=== PATIENT | male | born 1945 | race Caucasian/White ===

== ENCOUNTER → 2018-07-01 07:51 | Outpatient (CLI) | payer MEDICARE, OTHER, SELFPAY ==
[2018-07-01 09:21] LABS: Alanine Aminotransferase 31 IU/L (21-72); Albumin 4.3 g/dL (3.5-5.0); Albumin Globulin Ratio 1.5 (1.0-2.8); Alkaline Phosphatase 59 U/L (38-126); Aspartate Aminotransferase 27 IU/L (17-59); BUN Creatinine Ratio 16.3 (6-22); Bilirubin Total 0.8 mg/dL (0.2-1.3); Blood Urea Nitrogen 13 mg/dL (9-20); Calcium 9.2 mg/dL (8.4-10.2); Carbon Dioxide 31 mmol/L (22-32); Chloride 104 mmol/L (98-107); Estimated Glomerular Filt Rate > 60.0 mL/min (>60); Globulin 2.8 g/dL (1.7-4.1); Glucose 93 mg/dL (80-110); HEMOLYSIS < 15 (0-50); Potassium 4.2 mmol/L (3.4-5.1); Sodium 144 mmol/L (137-145); Total Protein 7.1 g/dL (6.3-8.2)
[2018-07-07 09:20] LABS: Lipoprofile NMR SEE SEPERATE REPORT
== END ==
PROVIDERS: PCP Family Medicine; Visit Provider Specialist
DX: E78.2 Mixed hyperlipidemia (principal)
CPT/HCPCS: 36415; 80053; 83704

== ENCOUNTER → 2018-09-27 08:41 | Outpatient (CLI) | payer MEDICARE, OTHER, SELFPAY ==
--- NOTE | 2018-09-27 | DI.MRI.S_ITS ---
PROCEDURE: MR LUMBAR SPINE WO CON INDICATIONS: LEFT ANKLE WEAKNESS, SI RADICULOPATHY TECHNIQUE: Noncontrast sagittal T1 spin echo and T2 fast echo, coronal T2, sagittal STIR, axial T1 and T2 fast spin echo through the lumbar spine. COMPARISON: None. FINDINGS: Image quality: Excellent. Alignment and Curvature: No plain films are available for comparison, for numbering purposes. Thus, for the purposes of this examination, 5 lumbar type vertebral bodies will be presumed, as denoted on the montage panel. This should be confirmed and correlated with plain films, prior to any lumbar spinal intervention. There is moderate leftward curvature of the upper lumbar spine. There is mild, grade 1 retrolisthesis of T12 on L1, L1-L2, L2 on L3, and L3 on L4. Bone Marrow: Marrow is of normal overall signal. No acute vertebral body compression fractures. There is mild reactive signal within the endplates adjacent to the L1-L2, L2-L3, L3-L4, and L4-L5 intervertebral discs. Spinal Cord: Conus medullaris terminates at the mid L1 level. Visualized cord demonstrates normal signal and size. Paraspinous Soft Tissues: No paravertebral masses. Partially exophytic 65 mm diameter cyst protrudes superiorly from the superior pole left kidney. L1-L2: Mild disc height loss and desiccation. Mild diffuse disc bulge. Mild bilateral facet and ligamentum flavum hypertrophy. Mild canal stenosis. Mild bilateral foraminal stenosis. No change. L2-L3: Moderate disc height loss and desiccation. Mild diffuse disc bulge. Mild bilateral facet and ligamentum flavum hypertrophy. Moderate canal stenosis. Mild bilateral foraminal stenosis. No change. L3-L4: Moderate disc height loss and desiccation. Mild diffuse disc bulge with superimposed broad-based left lateral protrusion. Mild bilateral facet and ligamentum flavum hypertrophy. Mild canal stenosis. Moderate subarticular left and mild right foraminal stenosis. L4-L5: Moderate disc height loss and desiccation. Mild diffuse disc bulge with superimposed broad-based left far lateral protrusion. Mild bilateral facet hypertrophy. Mild canal stenosis. Moderate subarticular left and mild right foraminal stenosis. L5-S1: Moderate disc height loss and desiccation. Mild diffuse disc bulge. Mild bilateral facet hypertrophy. No significant canal, nor foraminal stenosis. IMPRESSION: 1. 5 lumbar type vertebral bodies were presumed for the current report. Plain films of the lumbar spine are recommended for confirmation, prior to any lumbar spinal intervention. 2. Leftward curvature of the upper lumbar spine. 3. Multilevel degenerative disc and facet disease, as well as ligamentum flavum hypertrophy. 4. Mild multilevel canal stenoses. 5. Multilevel foraminal stenoses, worst on the left at L3-L4 and L4-L5, where there are moderate foraminal stenoses present. Dictated by: Amanuel Bean M.D. on 09/29/2018 at 9:05 Approved by: Amanuel Bean M.D. on 09/29/2018 at 9:09
== END ==
PROVIDERS: PCP Family Medicine; Visit Provider Family Medicine
DX: M51.16 Intervertebral disc disorders with radiculopathy, lumbar region (principal); M51.17 Intervertebral disc disorders with radiculopathy, lumbosacral region; M48.061 Spinal stenosis, lumbar region without neurogenic claudication; M48.07 Spinal stenosis, lumbosacral region
CPT/HCPCS: 72148

== ENCOUNTER → 2018-11-19 09:20 | Outpatient (CLI) | payer MEDICARE, OTHER, SELFPAY ==
[2018-11-19 09:50] LABS: Add Manual Diff / Slide Review NO; Basophils Absolute Auto 100 /uL (0-100); Basophils Percent Auto 1.6 % (0-2); Eosinophils Absolute Auto 200 /uL (0-450); Eosinophils Percent Auto 4.6 % (2-4); Hematocrit 45.4 % (41-53); Hemoglobin 14.5 g/dL (13.5-17.5); Lymphocytes Absolute Auto 1500 /uL (1100-4500); Lymphocytes Percent Auto 28.9 % (25-40); Mean Corpuscular HGB Conc 31.9 % (30-36); Mean Corpuscular Hemoglobin 24.9 PG (26-34); Mean Corpuscular Volume 78.2 fL (80-100); Monocytes Absolute Auto 500 /uL (0-900); Monocytes Percent Auto 10.1 % (3-14); Neutrophils Absolute Auto 2900 /uL (1500-7000); Neutrophils Percent Auto 54.8 % (50-75); Platelet Count 243 X10^3/uL (150-400); Red Blood Cell Count 5.81 X10^6/uL (4.5-5.9); Red Cell Distribution Width 16.2 % (11.6-14.8); White Blood Cell Count 5.3 X10^3/uL (4.5-11.0)
[2018-11-19 11:15] LABS: Vitamin B12 387 pg/mL (239-931)
== END ==
PROVIDERS: PCP Family Medicine; Visit Provider Family Medicine
DX: G62.9 Polyneuropathy, unspecified (principal)
CPT/HCPCS: 36415; 82607; 85025

== ENCOUNTER → 2018-12-26 09:09 | Outpatient (CLI) | payer MEDICARE, OTHER, SELFPAY ==
[2018-12-26 10:21] LABS: Alanine Aminotransferase 37 IU/L (21-72); Albumin 4.4 g/dL (3.5-5.0); Albumin Globulin Ratio 1.5 (1.0-2.8); Alkaline Phosphatase 61 U/L (38-126); Aspartate Aminotransferase 29 IU/L (17-59); BUN Creatinine Ratio 17.5 (6-22); Bilirubin Total 0.9 mg/dL (0.2-1.3); Blood Urea Nitrogen 14 mg/dL (9-20); Calcium 9.1 mg/dL (8.4-10.2); Carbon Dioxide 27 mmol/L (22-32); Chloride 102 mmol/L (98-107); Estimated Glomerular Filt Rate > 60.0 mL/min (>60); Globulin 2.9 g/dL (1.7-4.1); Glucose 91 mg/dL (80-110); HEMOLYSIS < 15 (0-50); Magnesium 2.2 mg/dL (1.6-2.3); Potassium 4.1 mmol/L (3.4-5.1); Sodium 140 mmol/L (137-145); Total Protein 7.3 g/dL (6.3-8.2)
[2018-12-29 11:45] LABS: Lipoprofile NMR SEE SEPERATE REPORT
== END ==
PROVIDERS: Family Provider Family Medicine; PCP Family Medicine; Visit Provider Specialist
DX: E78.2 Mixed hyperlipidemia (principal); I48.0 Paroxysmal atrial fibrillation
CPT/HCPCS: 36415; 80053; 83704; 83735

== ENCOUNTER 2019-10-11 11:16 | Emergency (ER) | payer MEDICARE, OTHER, SELFPAY ==
[2019-10-11] VITALS (7 sets, daily range): BP systolic 114–158; BP diastolic 58–94; PULSE 63–120; RESP 12–22; TEMP 36.6; O2SAT 97–100; BMI 20.8
--- NOTE | 2019-10-11 11:28 | DI.RAD.S_ITS ---
PROCEDURE: XR CHEST 1V INDICATIONS: soa TECHNIQUE: One view of the chest was acquired. COMPARISON: None. FINDINGS: Surgical changes and devices: None. Lungs and pleura: Mild hyperinflation suggesting COPD. Lungs are clear. No pleural effusions or pneumothorax. Mediastinum: Mediastinal contours appear normal. Heart size is normal. Bones and chest wall: No suspicious bony lesions. Overlying soft tissues appear unremarkable. IMPRESSION: No acute cardiopulmonary disease. Suspect COPD. Dictated by: Luís Pritchard M.D. on 10/11/2019 at 12:07 Approved by: Luís Pritchard M.D. on 10/11/2019 at 12:09
[2019-10-11 11:38] LABS: Add Manual Diff / Slide Review NO; Basophils Absolute Auto 100 /uL (0-100); Basophils Percent Auto 0.9 % (0-2); Eosinophils Absolute Auto 100 /uL (0-450); Eosinophils Percent Auto 0.6 % (2-4); Hematocrit 50.7 % (41-53); Hemoglobin 16.6 g/dL (13.5-17.5); Lymphocytes Absolute Auto 2000 /uL (1100-4500); Lymphocytes Percent Auto 24.4 % (25-40); Mean Corpuscular HGB Conc 32.7 % (30-36); Mean Corpuscular Hemoglobin 26.4 PG (26-34); Mean Corpuscular Volume 80.7 fL (80-100); Monocytes Absolute Auto 700 /uL (0-900); Monocytes Percent Auto 8.3 % (3-14); Neutrophils Absolute Auto 5400 /uL (1500-7000); Neutrophils Percent Auto 65.8 % (50-75); Platelet Count 267 X10^3/uL (150-400); Red Blood Cell Count 6.29 X10^6/uL (4.5-5.9); Red Cell Distribution Width 15.9 % (11.6-14.8); White Blood Cell Count 8.2 X10^3/uL (4.5-11.0)
[2019-10-11 11:43] LABS: Alanine Aminotransferase 22 IU/L (<50); Albumin 4.6 g/dL (3.5-5.0); Albumin Globulin Ratio 1.6 (1.0-2.8); Alkaline Phosphatase 73 U/L (38-126); Aspartate Aminotransferase 25 IU/L (17-59); BUN Creatinine Ratio 16.7 (6-22); Bilirubin Total 0.8 mg/dL (0.2-1.3); Blood Urea Nitrogen 15 mg/dL (9-20); Calcium 9.2 mg/dL (8.4-10.2); Carbon Dioxide 28 mmol/L (22-32); Chloride 101 mmol/L (98-107); Estimated Glomerular Filt Rate > 60.0 mL/min (>60); Globulin 2.9 g/dL (1.7-4.1); Glucose 108 mg/dL (80-110); HEMOLYSIS < 15 (0-50); Sodium 138 mmol/L (137-145); Total Protein 7.5 g/dL (6.3-8.2)
--- NOTE | 2019-10-11 11:44 | PC.NURSE ---
Pt reports h/o paroxsymal afib for numerous years. controlled with flecinide and eliquis. Multiple cardioversions. last one in 2017. reports increased SOB and palpitations since 10/09 at 0700. took an additional flecinide w/o relief and advised to come to ED for cardioversion. Rate controlled below 100 at this time. Pt reports orthostatic BPs this morning and when checked in ED pt went from 130's systolic to 114 systolic with increase of rate to 120's. appears well at this time. denies CP, remians on monitoring. IV placed and labs drawn and sent. CXR and EKG completed. awaiting MD assessment.
[2019-10-11 11:55] LABS: Troponin I < 0.012 ng/mL (0.01-0.034)
--- NOTE | 2019-10-11 11:58 | ED.SOB ---
HPI - SOB/Dyspnea General Chief Complaint: Shortness of Breath/Dyspnea Stated Complaint: SHORT OF BREATH RAPID HEARTBEAT FIBULATIONS Time Seen by Provider: 10/11/19 11:58 Source: patient Mode of arrival: Ambulatory Limitations: no limitations History of Present Illness HPI Narrative: This is a 73-year-old male who comes to the emergency department with complaint of atrial fibrillation and shortness of breath. Patient states that he has a history of paroxysmal atrial fibrillation he has been on flecainide and Eliquis for several years. In 2017 with his last event that required cardioversion. He has had 1-3 episodes of cardioversion the last in 2010 followed by being started on flecainide and spontaneously converting 3 prior times. Patient states he has felt lightheaded he checked his blood pressure at home and got 122 systolic laying flat and 84 when he stood. Patient states that he has not had any syncope. He denies any chest pressure pain but does feel little short of breath with exertion. He states he has chronic pedal edema but that it does not seem worse. He has not had any orthopnea. He has not had any cough or difficulty with breathing or congestion. Patient states that he did increase his flecainide from 75 mg twice daily yesterday and took 100 mg this morning he noted that his heart rate was slower but had not cardioverted to a normal rhythm. He did speak with the passenger tire inspector on-call his normal passenger tire inspector is Dr. Art and they recommended coming to the emergency department. He denies any prior surgeries besides a platelet infusion for orthopedic issues in [facility]. No medication allergies. He had a negative stress test/echo 2 years ago. Review of Systems Review of Systems ROS Unobtainable: All systems reviewed & are unremarkable except as noted in HPI and below Exam Narrative Exam Narrative: GENERAL: Alert and oriented x three, thin, well-appearing male in mild distress. HEENT: Head normocephalic, atraumatic, EOMI, pupils reactive, face symmetric, moist mucous membranes NECK: Supple, full range of motion CARDIOVASCULAR: Irregularly irregular rate and rhythm without murmurs, rubs or gallops. RESPIRATORY: Breath sounds equal bilaterally, no wheezes rales or rhonchi. No tachypnea or accessory muscle use. ABDOMEN: Soft, nontender. Normoactive bowel sounds all 4 quadrants. No guarding or rebound, rigidity, no mass : No CVA tenderness EXTREMITIES: Normal range of motion, trace bilateral pedal edema. Neurovascularly intact NEUROLOGICAL: Cranial nerves II through XII grossly intact. Moving all extremities SKIN: Warm, dry, no petechiae, no rashes or lesions. Initial Vital Signs Initial Vital Signs: Vital Signs Temperature 97.9 F 10/11/19 11:20 Pulse Rate 87 10/11/19 11:20 Respiratory Rate 22 10/11/19 11:20 Blood Pressure 136/84 10/11/19 11:20 Pulse Oximetry 100 10/11/19 11:20 Procedures Cardioversion Consent Signed: Yes Indication: atrial fibrillation Cardiac rhythm prior to cardioversion: atrial fibrillation Stability: Stable Number of attempts (shocks): 1 Joules used: 150 Cardiac rhythm post-cardioversion: sinus rhythm Procedural Sedation Patient Age: Patient is 5yrs or older Consent signed: Yes Indication: cardioversion ASA Class: II Mallampati Airway Classification: Class II Time of Last PO Intake: 09:15 Preparation: appliance mechanic applied, pulse oximeter, capnometry used, supplemental O2 applied, suction/airway equipment at bedside and IV secured IV Etomidate dose (mg): 8 ED Sedation Level: Moderate (Concious) Patient Tolerated Procedure: Well Complications: none Course Orders Ordered: ED Orders 10/11/19 11:24 EKG-12 Lead Stat 10/11/19 11:25 Complete Blood Count AUTO DIFF Stat Comprehensive Metabolic Panel Stat Troponin I Stat 10/11/19 11:28 XR chest 1V Stat 10/11/19 11:34 B Type Natriuretic Peptide Stat Creatine Kinase Stat Lipase Stat Magnesium Stat Discontinued Medications Etomidate (Amidate) 8 mg IV NOW ONE Stop: 10/11/19 13:36 Last Admin: 10/11/19 13:54 Dose: 8 mg Documented by: REGINE Sodium Chloride (Normal Saline 0.9%) 1,000 mls @ 1,000 mls/hr IV BOLUS ONE Stop: 10/11/19 13:16 Last Infusion: 10/11/19 13:20 Dose: 0 mls/hr Documented by: Admin: 10/11/19 12:23 Dose: 1,000 mls/hr Documented by: REGINE Vital Signs Vital signs: Vital Signs - 8 hr 10/11/19 11:20 10/11/19 12:34 10/11/19 13:54 Temperature 97.9 F Pulse Rate 87 74 87 Pulse Rate [Orthostatic Lying] 87 Pulse Rate [Orthostatic Standing] 120 H Respiratory Rate 22 16 15 Blood Pressure 136/84 Blood Pressure [Left Arm] 126/79 158/58 H Blood Pressure [Orthostatic Lying] 136/84 Blood Pressure [Orthostatic Standing] 114/94 H Pulse Oximetry 100 100 97 10/11/19 13:56 10/11/19 13:59 10/11/19 14:03 Temperature Pulse Rate 64 63 78 Pulse Rate [Orthostatic Lying] Pulse Rate [Orthostatic Standing] Respiratory Rate 15 17 12 Blood Pressure Blood Pressure [Left Arm] 121/84 137/80 Blood Pressure [Orthostatic Lying] Blood Pressure [Orthostatic Standing] Pulse Oximetry 97 97 10/11/19 14:04 Temperature Pulse Rate 72 Pulse Rate [Orthostatic Lying] Pulse Rate [Orthostatic Standing] Respiratory Rate 15 Blood Pressure Blood Pressure [Left Arm] 132/77 Blood Pressure [Orthostatic Lying] Blood Pressure [Orthostatic Standing] Pulse Oximetry 97 MDM - SOB/Dyspnea Lab Data Attestation: I reviewed the patient's lab results. Result diagrams: 10/11/19 11:25 10/11/19 11:25 Labs: Lab Results 10/11/19 10/11/19 10/11/19 Range/Units 11:25 11:25 11:34 WBC 8.2 (4.5-11.0) X10^3/uL RBC 6.29 H (4.5-5.9) X10^6/uL Hgb 16.6 (13.5-17.5) g/dL Hct 50.7 (41-53) % MCV 80.7 (80-100) fL MCH 26.4 (26-34) PG MCHC 32.7 (30-36) % RDW 15.9 H (11.6-14.8) % Plt Count 267 (150-400) X10^3/uL Neut % (Auto) 65.8 (50-75) % Lymph % (Auto) 24.4 L (25-40) % [place] % (Auto) 8.3 (3-14) % Eos % (Auto) 0.6 L (2-4) % Baso % (Auto) 0.9 (0-2) % Neut # (Auto) 5400 (6501-2772) /uL Lymph # (Auto) 2000 (5095-0749) /uL [place] # (Auto) 700 (0-900) /uL Eos # (Auto) 100 (0-450) /uL Baso # (Auto) 100 (0-100) /uL Sodium 138 (137-145) mmol/L Potassium 4.0 (3.4-5.1) mmol/L Chloride 101 (98-107) mmol/L Carbon Dioxide 28 (22-32) mmol/L BUN 15 (9-20) mg/dL Creatinine 0.90 (0.66-1.25) mg/dL Estimated GFR > 60.0 (>60) mL/min BUN/Creatinine Ratio 16.7 (6-22) Glucose 108 (80-110) mg/dL Calcium 9.2 (8.4-10.2) mg/dL Magnesium (1.6-2.3) mg/dL Total Bilirubin 0.8 (0.2-1.3) mg/dL AST 25 (17-59) IU/L ALT 22 (<50) IU/L Alkaline Phosphatase 73 (38-126) U/L Total Creatine Kinase (55-170) U/L Troponin I < 0.012 (0.01-0.034) ng/mL B-Natriuretic Peptide (<100) Total Protein 7.5 (6.3-8.2) g/dL Albumin 4.6 (3.5-5.0) g/dL Globulin 2.9 (1.7-4.1) g/dL Albumin/Globulin Ratio 1.6 (1.0-2.8) Lipase 38 (23-300) U/L 10/11/19 10/11/19 10/11/19 Range/Units 11:34 11:34 11:34 WBC (4.5-11.0) X10^3/uL RBC (4.5-5.9) X10^6/uL Hgb (13.5-17.5) g/dL Hct (41-53) % MCV (80-100) fL MCH (26-34) PG MCHC (30-36) % RDW (11.6-14.8) % Plt Count (150-400) X10^3/uL Neut % (Auto) (50-75) % Lymph % (Auto) (25-40) % [place] % (Auto) (3-14) % Eos % (Auto) (2-4) % Baso % (Auto) (0-2) % Neut # (Auto) (6278-2032) /uL Lymph # (Auto) (1106-4783) /uL [place] # (Auto) (0-900) /uL Eos # (Auto) (0-450) /uL Baso # (Auto) (0-100) /uL Sodium (137-145) mmol/L Potassium (3.4-5.1) mmol/L Chloride (98-107) mmol/L Carbon Dioxide (22-32) mmol/L BUN (9-20) mg/dL Creatinine (0.66-1.25) mg/dL Estimated GFR (>60) mL/min BUN/Creatinine Ratio (6-22) Glucose (80-110) mg/dL Calcium (8.4-10.2) mg/dL Magnesium 2.1 (1.6-2.3) mg/dL Total Bilirubin (0.2-1.3) mg/dL AST (17-59) IU/L ALT (<50) IU/L Alkaline Phosphatase (38-126) U/L Total Creatine Kinase 69 (55-170) U/L Troponin I (0.01-0.034) ng/mL B-Natriuretic Peptide 196 H (<100) Total Protein (6.3-8.2) g/dL Albumin (3.5-5.0) g/dL Globulin (1.7-4.1) g/dL Albumin/Globulin Ratio (1.0-2.8) Lipase (23-300) U/L Imaging Data Chest x-ray: Radiologist's Impression: Marco Crews 73 M [address] [address] XRay Report Signed Patient: Marco Crews HMR#: [id number] : 7Acct:[id number] Age/Sex: 73 / MDate of Service: 10/11/19 Loc: ED Accession Number: [id number] Procedure: XR chest 1V Ordering Provider: Sayra Ward D.O. PROCEDURE: XR CHEST 1V INDICATIONS: soa TECHNIQUE: One view of the chest was acquired. COMPARISON: None. FINDINGS: Surgical changes and devices: None. Lungs and pleura: Mild hyperinflation suggesting COPD. Lungs are clear. No pleural effusions or pneumothorax. Mediastinum: Mediastinal contours appear normal. Heart size is normal. Bones and chest wall: No suspicious bony lesions. Overlying soft tissues appear unremarkable. IMPRESSION: No acute cardiopulmonary disease. Suspect COPD. Dictated by: Luís Pritchard M.D. on 10/11/2019 at 12:07 Approved by: Luís Pritchard M.D. on 10/11/2019 at 12:09 ECG Data Attestation: I personally reviewed and interpreted this ECG as follows: Prior ECG tracings: available for review Interpretation: AFib with a rate 81, QRS of 98 QTC of 389. Patient has depression V4 V5. No ST elevation appreciated. Patient has a EKG from 09/16/2019 with normal sinus rhythm and 02/06/2012 with AFib. Changes in V4 and V5 do appear different than prior. EKG 2. Shows sinus rhythm with first-degree AV block rate of 66 P are 248 QRS of 98 QTC of 421. No ST elevation or depression is noted on this EKG. MDM Narrative Medical decision making narrative: Patient comes in in AFib although rate controlled while sitting but when he 1st walked in and standing his heart rate was 120. Patient has had palpitations some shortness of breath and fatigue but no chest pressure. EKG does show some possible change in V4 V5 no other changes appreciated. Patient troponin is negative, his CBC shows a slightly high RBC and RDW to the left. Chemistry showed normal renal function electrolytes, troponin is negative. Chest x-ray is negative. Discussed with patient he does appear to be a little bit orthostatic by his description as well as his heart rate here standing and then lying down. Plan to try some fluids he increase his flecainide will see if this will help him cardiovert if not will recontact Cardiology. Patient did not cardiovert with fluids although his heart rate has been in the 70s to 80s. Discussed with Dr. Sparks spoke with the patient earlier. He recommends going ahead in cardioverting the patient is he has been on Eliquis without missing doses. He was aware patient had increase his flecainide today without improvement. He recommends cardioversion in the ED. Returning was flecainide 75 mg b.i.d., continuing his Eliquis and following up via phone with Dr. Art his passenger tire inspector tomorrow for decision about further recheck. Patient tolerated procedure well after 1 shock was cardioverted to a sinus rhythm. Patient was monitored and feels much better. States he feels asymptomatic at this time. Ambulated safely in the department. Discharge Plan Departure Patient Disposition: Home Clinical Impression: Atrial fibrillation Discharge Date/Time: 10/11/19 14:30 Instructions: DI for Atrial Fibrillation Activity Restrictions/Additional Instructions: Follow-up with Dr. Art, call tomorrow morning to set up follow-up appointment. Continue flecainide 75 mg twice daily Continue your Eliquis as prescribed. You may continue your other home medications as prescribed. Return to the ER for recurrent symptoms, lightheadedness, passing out, sudden severe headaches, new chest pain, shortness of breath, fast heartbeat, new swelling in her lower extremities, persistent vomiting, new weakness numbness or other new or concerning symptoms. Referrals: Bhargav Webster MD [Primary Care Provider] - Te Art MD [Physician] -
[2019-10-11] MEDS: SODIUM CHLORIDE 0.9% 1,000 ML 1000 ML IV (12:23)
[2019-10-11 12:30] LABS: Creatine Kinase 69 U/L (55-170); Lipase 38 U/L (23-300)
[2019-10-11 12:31] LABS: Magnesium 2.1 mg/dL (1.6-2.3)
[2019-10-11 13:02] LABS: B Type Natriuretic Peptide 196 (<100)
[2019-10-11] MEDS: ETOMIDATE 2 MG/ML 10 ML VIAL 8 MG IV (13:54)
== END 2019-10-11 14:30 | disposition home or self-care (01) ==
PROVIDERS: Emergency Provider Emergency Medicine; Family Provider Family Medicine; PCP Family Medicine
DX: I48.0 Paroxysmal atrial fibrillation (principal); Z79.01 Long term (current) use of anticoagulants
CPT/HCPCS: 36415; 71045; 80053; 82550; 83690; 83735; 83880; 84484; 85025; 92960; 93005; 94770; 96361; 96374; 99285

== ENCOUNTER → 2019-11-09 08:48 | Outpatient (CLI) | payer MEDICARE, OTHER, SELFPAY ==
--- NOTE | 2019-11-09 | DI.ECHO.S_ITS ---
[facility]---------+ [facility] +---------+ : : [address] : : : : [id number] : : : : Phone: [phone]+ Echocardiogram Report + + :Name: EVER HOANG Study Date: 11/09/2019 Height: 77 in : :[facility] [facility] Weight: 175 lb : : Gender: Male BSA: 2.1 m2 : :: 1945 Age: 73 yrs BP: 118/86 mmHg: :Reason For Study: Mitral Valve- Regurgitation : :Ordering Physician: Juvencio : :Rubens Performed By: Olvin Sun : :Referring: JUVENCIO MEAD : + + Interpretation Summary Left ventricular systolic function is low normal without focal wall motion abnormalities with the ejection fraction visually estimated to be 50-55% and appears unchanged compared to the previous study. Left ventricular size is at the upper limits of normal and is slightly larger compared to the previous study. Diastolic parameters suggest probable normal left ventricular diastolic function and normal filling pressures. There has been no significant change since the previous study. The right ventricle is borderline dilated but systolic function is normal and appears unchanged compared to the previous study. Pulmonary artery pressures cannot be estimated because of the lack of a measurable TR jet velocity but the IVC suggests a CVP of around 3 mmHg. The left atrium is severely dilated and is unchanged compared to the previous study. The right atrium is borderline dilated and measures smaller compared to the previous study. The mitral valve leaflets appear moderately thickened with a flat closure plane with possible mild prolapse of the anterior leaflet producing moderate to moderate-severe mitral regurgitation with a regurgitant jet that is posteriorly directed, consistent with anterior leaflet pathology, but grossly appears unchanged compared to the previous study. There is no other significant valvular heart disease. The patient was in sinus rhythm with heart rates between 50-60 bpm during the exam. Procedure: A two-dimensional transthoracic echocardiogram with color flow and Doppler was performed. The study quality was technically adequate. Prior echo performed on 01/14/17. The patient was in sinus rhythm with heart rates between 50-60 bpm during the exam. Left Ventricle: There is normal left ventricular wall thickness. Left ventricular size is at the upper limits of normal. This is slightly larger compared to the previous study. Left ventricular systolic function is low normal. The ejection fraction is estimated to be 50-55%. There are no focal wall motion abnormalities. This is unchanged compared to the previous study. Diastolic parameters suggest probable normal left ventricular diastolic function and normal filling pressures. There has been no significant change since the previous study. Right Ventricle: The right ventricle is borderline dilated. The right ventricular systolic function is normal. This is unchanged compared to the previous study. Atria: The left atrium is severely dilated. This is unchanged compared to the previous study. The right atrium is borderline dilated. This is smaller compared to the previous study. The interatrial septum is intact with no evidence for an atrial septal defect. Mitral Valve: The mitral valve leaflets appear moderately thickened, but open well. There is a flat closure plane of the the mitral valve leaflets. There is possible mild prolapse of the anterior leaflet. There is moderate mitral regurgitation. The mitral regurgitant jet is posteriorly directed, which is consistent with anterior leaflet pathology. This is unchanged compared to the previous study. Aortic Valve: The aortic valve is trileaflet. The aortic valve opens well. No aortic regurgitation is present. Tricuspid Valve: The tricuspid valve leaflets are thin and pliable. There is trace tricuspid regurgitation. Pulmonary artery pressures cannot be estimated because of the lack of a measurable TR jet velocity but the IVC suggests a CVP of around 3 mmHg. Pulmonic Valve: The pulmonic valve is not well visualized. There is trace pulmonic regurgitation. There is no other significant valvular heart disease. Great Vessels: The aortic root is normal size. The pulmonary artery is normal size. The IVC is of normal diameter and collapses greater than 50% with a sniff. This suggests a low right atrial pressure of 3 mm Hg. Pericardium/ Pleura There is no pericardial effusion. There is no pleural effusion. MMode/2D Measurements & Calculations LVIDd: 5.5 cm LVOT diam: 2.1 cm LVIDs: 3.7 cm Ao root diam: 3.7 cm FS: 32.2 % EPSS: 0.57 cm IVSd: 1.0 cm LVPWd: 1.1 cm LV pierce. diameter/BSA (cm/m^2): 2.6 LV sys. diameter/BSA (cm/m^2): 1.8 LA A2 area: 27.9 cm2 RA long axis: 5.8 cm LA A4 area: 29.4 cm2 RA area: 20.3 cm2 LA length (vol): 5.4 cm RA vol: 60.4 ml LA vol: 129.3 ml RA : 28.6 ml/m2 LA vol index: 61.2 ml/m2 IVC diam: 1.8 cm TAPSE: 2.0 cm Doppler Measurements & Calculations Ao V2 max: 117.8 cm/sec LVOT Max Flo: 80.8 cm/sec Ao V2 mean: 84.0 cm/sec LV V1 max P.6 mmHg Ao max P.5 mmHg LV V1 VTI: 16.5 cm Ao mean P.2 mmHg PORTIA(I,D): 2.2 cm2 Ao V2 VTI: 25.6 cm PORTIA(V,D): 2.3 cm2 sev ratio: 0.64 PORTIA indexed to BSA (cm^2/m^2): 1.0 MV E max flo: 67.0 cm/sec PA V2 max: 41.4 cm/sec MV A max flo: 54.7 cm/sec PA V2 mean: 28.8 cm/sec MV E/A: 1.2 PA mean P.38 mmHg Med Peak E' Flo: 8.8 cm/sec PA Accel Time: 0.12 sec E/E' med: 7.6 Lat Peak E' Flo: 7.9 cm/sec E/E' lat: 8.5 E/e' average: 8.1 MV dec time: 0.20 sec SV(LVOT): 55.7 ml Reading Physician:VIVIAN
[2019-11-09 10:26] LABS: Alanine Aminotransferase 20 IU/L (<50); Albumin 4.3 g/dL (3.5-5.0); Albumin Globulin Ratio 1.4 (1.0-2.8); Alkaline Phosphatase 72 U/L (38-126); Aspartate Aminotransferase 24 IU/L (17-59); BUN Creatinine Ratio 16.3 (6-22); Bilirubin Total 0.9 mg/dL (0.2-1.3); Blood Urea Nitrogen 13 mg/dL (9-20); Calcium 9.4 mg/dL (8.4-10.2); Carbon Dioxide 29 mmol/L (22-32); Chloride 102 mmol/L (98-107); Estimated Glomerular Filt Rate > 60.0 mL/min (>60); Glucose 92 mg/dL (80-110); HEMOLYSIS < 15 (0-50); Magnesium 2.2 mg/dL (1.6-2.3); Potassium 4.4 mmol/L (3.4-5.1); Sodium 138 mmol/L (137-145); Total Protein 7.3 g/dL (6.3-8.2)
[2019-11-11 08:38] LABS: Lipoprofile NMR SEE SEPARATE REPORTS
== END ==
PROVIDERS: Family Provider Family Medicine; PCP Family Medicine; Visit Provider Specialist
DX: I34.0 Nonrheumatic mitral (valve) insufficiency (principal); E78.2 Mixed hyperlipidemia; I48.0 Paroxysmal atrial fibrillation
CPT/HCPCS: 36415; 80053; 80299; 83704; 83735; 93306

== ENCOUNTER → 2020-05-13 07:32 | Outpatient (CLI) | payer MEDICARE, OTHER, SELFPAY ==
[2020-05-13 08:12] LABS: Alanine Aminotransferase 23 IU/L (<50); Albumin 4.3 g/dL (3.5-5.0); Albumin Globulin Ratio 1.8 (1.0-2.8); Alkaline Phosphatase 67 U/L (38-126); Aspartate Aminotransferase 32 IU/L (17-59); BUN Creatinine Ratio 16.5 (6-22); Bilirubin Total 0.9 mg/dL (0.2-1.3); Blood Urea Nitrogen 14 mg/dL (9-20); Calcium 9.5 mg/dL (8.4-10.2); Carbon Dioxide 28 mmol/L (22-32); Chloride 104 mmol/L (98-107); Estimated Glomerular Filt Rate > 60.0 mL/min (>60); Globulin 2.4 g/dL (1.7-4.1); Glucose 88 mg/dL (80-110); HEMOLYSIS < 15 (0-50); Magnesium 2.2 mg/dL (1.6-2.3); Potassium 4.4 mmol/L (3.4-5.1); Sodium 138 mmol/L (137-145); Total Protein 6.7 g/dL (6.3-8.2)
[2020-05-16 09:12] LABS: Cholesterol, Total 173 mg/dL (100-199); HDL-Cholesterol 76 mg/dL (>39); HDL-Particle (Total) 33.5 umol/L (>=30.5); Historical Reading Comment: (.); LDL Particle 833 nmol/L (<1000); LDL Size 21.9 nm (>20.5); LDL-Cholsterol 84 mg/dL (0-99); LP-IR Score <25 (<=45); Small LDL- Particle <90 nmol/L (<=527); Triglycerides 67 mg/dL (0-149)
== END ==
PROVIDERS: Family Provider Family Medicine; PCP Family Medicine; Referring Provider Specialist; Visit Provider Specialist
DX: E78.2 Mixed hyperlipidemia (principal); I48.0 Paroxysmal atrial fibrillation
CPT/HCPCS: 36415; 80053; 80061; 83704; 83735

== ENCOUNTER 2020-06-23 01:21 | Emergency (ER) | payer MEDICARE, OTHER, SELFPAY ==
[2020-06-23 01:34] VITALS: BP 150/75; PULSE 84; RESP 18; TEMP 36.7; O2SAT 96; BMI 20.7
--- NOTE | 2020-06-23 01:36 | ED_ITS ---
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 He has been unable to void for the last 10 hours and is having increasing pain. Related Data Previous Rx's Medication Instructions Recorded tamsulosin [Flomax] 0.4 mg PO DAILY #30 cap 06/23/20 Allergies Allergy/AdvReac Type Severity Reaction Status Date / Time bee venom protein (honey bee) Allergy Verified 06/23/20 01:33 Review of Systems Review of Systems Narrative: Pertinent positive and negative findings as per HPI Remainder of review of systems is otherwise unremarkable for Constitutional: Fevers, chills, weakness ENT: No sore throat, neck pain, ear pain CV: Chest pain, palpitations, dyspnea on exertion Respiratory: Cough, wheeze, dyspnea GI: Nausea, vomiting, diarrhea, change in bowel habits, black or bloody stools Neuro: Syncope, dizziness, tingling Patient History Medical History Acute urinary retention (Acute) Atrial fibrillation (Acute) Surgical History History of ankle surgery (Acute) Social History Smoking Status: Never smoker Exam Narrative Exam Narrative: General: Alert appropriate in no acute distress Respiratory: Able to speak in full sentences, no obvious respiratory distress Skin: No obvious rashes, warm and dry Neurologic: Grossly intact no obvious asymmetries or abnormalities Psych, appropriate insight and affect, cooperative Murcia catheters placed by nurse without difficulty. 900 cc of urine returns immediately Initial Vital Signs Initial Vital Signs: Vital Signs Temperature 98.1 F 06/23/20 01:34 Pulse Rate 84 06/23/20 01:34 Respiratory Rate 18 06/23/20 01:34 Blood Pressure 150/75 H 06/23/20 01:34 Pulse Oximetry 96 06/23/20 01:34 Scores ABCD2 Citation: Lancet. 2006Nov 09;369(5277):283-92. Validation and refinement of scores to predict very early stroke risk after transient ischaemic attack. Bhaskar SC1, Cesar PM, Phillip MN, Arnulfo MF, Skip JS, Chastity AL, Ruben S. Course Orders Ordered: Discontinued Medications Lidocaine HCl (Urojet) 5 ml TOP NOW ONE Stop: 06/23/20 01:30 Last Admin: 06/23/20 01:45 Dose: 5 ml Documented by: [email or web address] Vital Signs Vital signs: Vital Signs - 8 hr 06/23/20 01:34 Temperature 98.1 F Pulse Rate 84 Respiratory Rate 18 Blood Pressure 150/75 H Pulse Oximetry 96 MDM - Male Genitourinary Medical Records Attestation: I reviewed the patient's medical records. [facility] Narrative Medical decision making narrative: Postoperative acute urinary retention. Murcia catheter placed without complication. Recommended at least 3 days for the catheter route to remain in place and suggested leaving it in until Saturday simply for convenience. Flomax for at least a week after the catheter has been removed. Patient is safe for home discharge Discharge Plan Departure Patient Disposition: Home Clinical Impression: Acute urinary retention Instructions: DI for Urinary Retention in Men Activity Restrictions/Additional Instructions: Thank you for coming in tonight I am glad that we were able to relieve the pain. You had almost a Liter of urine in your bladder when the catheter was placed. I suspect that the acute retention is secondary to the anesthesia today. I am going to recommend Flomax for at least a week after the catheter is removed to increase the chances of never having to replace it. We typically recommend leaving the catheter in for at least 3 days. I would recommend leaving it in until at least Saturday morning and talking with Dr. Tomlinson first. Once it is out, if you are unable to void it will need to be replaced. I hope the rest of your foot surgery recovery is far less eventful period I wish you the best Prescriptions: New tamsulosin [Flomax] 0.4 mg capsule 0.4 mg PO DAILY Qty: 30 RF: 0 Referrals: Bhargav Webster MD [Primary Care Provider] -
[2020-06-23] MEDS: LIDOCAINE 2% (UROJET) 5 ML GEL TOP (01:45)
[2020-06-23 02:35] VITALS: BP 144/75; PULSE 79; O2SAT 100
== END 2020-06-23 02:35 | disposition home or self-care (01) ==
PROVIDERS: Emergency Provider Emergency Medicine; Family Provider Family Medicine; PCP Family Medicine
DX: R33.8 Other retention of urine (principal)
CPT/HCPCS: 99282; 99284

== ENCOUNTER → 2020-09-30 12:58 | Outpatient (CLI) | payer MEDICARE, OTHER, SELFPAY ==
--- NOTE | 2020-09-30 | DI.US.S_ITS ---
PROCEDURE: US PERIPH VENOUS LOW EXTREM LT INDICATIONS: Contusion of left lower leg, initial encounter TECHNIQUE: Real-time imaging, as well as color and pulse Doppler interrogation, were performed of the lower extremity deep veins from the inguinal ligament to the popliteal fossa. COMPARISON: None. FINDINGS: The common femoral, femoral and popliteal veins are normally compressible, and free of intraluminal thrombus. Color and pulse Doppler demonstrate normal phasic intraluminal flow. There is normal augmentation response to distal compression maneuver. 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 Within the left superior posterior calf, there is a heterogeneous hypoechoic intramuscular collection with posterior enhancement measuring approximately 4.8 x 4.0 x 2.8 cm. No internal vascularity demonstrated on color Doppler interrogation. IMPRESSION: 1. No evidence of deep venous thrombosis in the left lower extremity. 2. Heterogeneous intramuscular collection in the posterior calf likely represents a hematoma. Dictated by: Tiburcio Summers M.D. on 09/30/2020 at 14:45 Approved by: Tiburcio Summers M.D. on 09/30/2020 at 14:48
== END ==
PROVIDERS: Family Provider Family Medicine; PCP Family Medicine; Referring Provider Family Medicine; Visit Provider Family Medicine
DX: S80.12XA Contusion of left lower leg, initial encounter (principal)
CPT/HCPCS: 93971

== ENCOUNTER → 2020-12-30 08:18 | Outpatient (CLI) | payer MEDICARE, OTHER, SELFPAY ==
[2020-12-30 10:21] LABS: Alanine Aminotransferase 20 IU/L (<50); Albumin 4.4 g/dL (3.5-5.0); Albumin Globulin Ratio 1.7 (1.0-2.8); Alkaline Phosphatase 78 U/L (38-126); Aspartate Aminotransferase 27 IU/L (17-59); BUN Creatinine Ratio 16.4 (6-22); Bilirubin Total 0.5 mg/dL (0.2-1.3); Blood Urea Nitrogen 12 mg/dL (9-20); Calcium 9.3 mg/dL (8.4-10.2); Carbon Dioxide 27 mmol/L (22-32); Chloride 103 mmol/L (98-107); Estimated Glomerular Filt Rate > 60.0 mL/min (>60); Globulin 2.6 g/dL (1.7-4.1); Glucose 90 mg/dL (80-110); HEMOLYSIS < 15 (0-50); Magnesium 2.1 mg/dL (1.6-2.3); Potassium 4.4 mmol/L (3.4-5.1); Sodium 137 mmol/L (137-145)
[2021-01-05 11:38] LABS: LDL Particle 701; LDL-Cholsterol 72
[2021-01-05 11:39] LABS: HDL-Cholesterol 81; Triglycerides 62
[2021-01-05 11:40] LABS: Cholesterol, Total 165; HDL-Particle (Total) 33.9
[2021-01-05 11:41] LABS: LDL Size 22.1; Small LDL- Particle <90
[2021-01-05 11:47] LABS: LP-IR Score <25
== END ==
PROVIDERS: Family Provider Family Medicine; PCP Family Medicine; Referring Provider Specialist; Visit Provider Specialist
DX: E78.00 Pure hypercholesterolemia, unspecified (principal); I48.0 Paroxysmal atrial fibrillation
CPT/HCPCS: 36415; 80053; 80061; 80299; 83704; 83735

== ENCOUNTER → 2021-01-06 09:14 | Outpatient (CLI) | payer MEDICARE, OTHER, SELFPAY ==
--- NOTE | 2021-01-06 | DI.ECHO.S_ITS ---
[facility] +---------+ [facility] +---------+ : : [address] : [place] : : : : [id number] : : : : Phone: [phone]+ Echocardiogram Report + + :Name: EVER HOANG Study Date: 01/06/2021 Height: 77 in : [id number] ReadingLocation: Weight: 182 lb : : Gender: Male BSA: 2.1 m2 : :: 1945 Age: 75 yrs BP: 149/81 mmHg: :Reason For Study: Mitral Valve- Regurgitation : :Ordering Physician: Te : :Rosana Art Performed By: Ángela Fernandez : + + Interpretation Summary Left ventricular systolic function continues to appear to be at the lower limits of normal with an ejection fraction estimated at 50 to 55% without any focal wall motion abnormality and appears unchanged from the previous study. The left ventricle is mildly enlarged, measuring 168 mL, and measures slightly larger compared to the previous study although visually appears unchanged. Diastolic function remains challenging to assess because of contradictory data but is likely similar to the previous study. The right ventricle is mildly enlarged with normal systolic function and grossly appears unchanged from the previous study. Right ventricular systolic pressure cannot be estimated but CVP is likely around 3 mmHg. There is severe biatrial enlargement, both significantly larger compared to the previous study. The mitral valve continues to have moderately thickened leaflets with a flat closure plane with a fairly impressive regurgitant jet, likely reflecting moderate mitral regurgitation but appears unchanged from the previous study. There is no other significant valvular abnormality. The aortic root, ascending aorta, and aortic arch are all borderline enlarged and measure slightly larger compared to the previous study. The patient was in sinus rhythm at 60-70 bpm during the exam. Procedure: A two-dimensional transthoracic echocardiogram with color flow and Doppler was performed. The study quality was technically adequate. Comparison is made with the echocardiogram of 11/09/2019. The patient was in sinus rhythm with heart rates between 60-70 bpm during the exam. Left Ventricle: The left ventricle is mildly dilated. The estimated left ventricular end diastolic volume is 168 ml. This is likely unchanged compared to the previous study. There is normal left ventricular wall thickness. There is no ventricular septal defect visualized. Left ventricular systolic function is low normal. The ejection fraction is estimated to be 50-55%. There are no focal wall motion abnormalities. This is unchanged compared to the previous study. Diastolic function could not be accurately assessed due to contradictory data. This is unchanged compared to the previous study. Right Ventricle: The right ventricle is mildly dilated. The right ventricular systolic function is normal. This is unchanged compared to the previous study. Atria: Both atria are severely dilated. Both atria have significantly increased in size since the prior echo exam. There is no Doppler evidence for an interatrial shunt. Mitral Valve: The mitral valve leaflets appear moderately thickened, but open well. There is a flat closure plane of the the mitral valve leaflets. There is moderate mitral regurgitation. The mitral regurgitant jet is posteriorly directed, which is consistent with anterior leaflet pathology. This is unchanged compared to the previous study. Aortic Valve: The aortic valve is trileaflet. The aortic valve is slightly calcified. The aortic valve opens well. No aortic regurgitation is present. Tricuspid Valve: The tricuspid valve is normal in structure and function. No tricuspid regurgitation. Pulmonary artery pressures cannot be estimated because of the lack of a measurable TR jet velocity but the IVC suggests a CVP of around 3 mmHg. Pulmonic Valve: The pulmonic valve is not well visualized. There is no other significant valvular heart disease. Great Vessels: The aortic root is borderline dilated. This is slightly larger compared to the previous study. The ascending aorta is at the upper limits of normal in size. The aortic arch is at the upper limits of normal in size. The IVC is of normal diameter and collapses greater than 50% with a sniff. This suggests a low right atrial pressure of 3 mm Hg. Pericardium/ Pleura There is no pericardial effusion. MMode/2D Measurements & Calculations LVIDd: 5.9 cm LVOT diam: 2.3 cm LVIDs: 3.6 cm Ao root diam: 3.9 cm FS: 39.7 % asc Aorta Diam: 3.5 cm EPSS: 0.43 cm Ao Arch Diam (Prox Trans): 3.0 cm IVSd: 1.2 cm LVPWd: 0.85 cm LV pierce. diameter/BSA (cm/m^2): 2.7 LV sys. diameter/BSA (cm/m^2): 1.7 LA A2 area: 41.2 cm2 RA long axis: 6.1 cm LA A4 area: 39.7 cm2 RA area: 30.4 cm2 LA length (vol): 7.1 cm RA vol: 129.0 ml LA vol: 195.7 ml RA : 60.0 ml/m2 LA vol index: 91.1 ml/m2 IVC diam: 1.2 cm RVD1 (basal): 5.0 cm TAPSE: 3.1 cm Doppler Measurements & Calculations Ao V2 max: 127.3 cm/sec LVOT Max Flo: 85.1 cm/sec Ao V2 mean: 87.5 cm/sec LV V1 max P.9 mmHg Ao max P.5 mmHg LV V1 VTI: 15.1 cm Ao mean P.5 mmHg PORTIA(I,D): 2.5 cm2 Ao V2 VTI: 25.0 cm PORTIA(V,D): 2.8 cm2 sev ratio: 0.61 PORTIA indexed to BSA (cm^2/m^2): 1.2 MV E max flo: 65.6 cm/sec PA V2 max: 82.6 cm/sec MV A max flo: 55.9 cm/sec PA V2 mean: 58.3 cm/sec MV E/A: 1.2 PA mean P.5 mmHg Med Peak E' Flo: 9.9 cm/sec PA Accel Time: 0.07 sec E/E' med: 6.6 Lat Peak E' Flo: 9.6 cm/sec E/E' lat: 6.9 E/e' average: 6.7 MV dec time: 0.23 sec MR ERO: 0.13 cm2 MR PISA: 2.4 cm2 SV(LVOT): 63.1 ml MR flow rate: 74.7 cm3/sec MR PISA radius: 0.62 cm Reading Physician:12:11 PM
== END ==
PROVIDERS: Family Provider Family Medicine; PCP Family Medicine; Referring Provider Family Medicine; Visit Provider Specialist
DX: I34.0 Nonrheumatic mitral (valve) insufficiency (principal)
CPT/HCPCS: 93306

== ENCOUNTER → 2021-07-19 08:19 | Outpatient (CLI) | payer MEDICARE, OTHER, SELFPAY ==
[2021-07-19 09:25] LABS: Alanine Aminotransferase 21 IU/L (<50); Albumin 4.3 g/dL (3.5-5.0); Albumin Globulin Ratio 1.6 (1.0-2.8); Alkaline Phosphatase 66 U/L (38-126); Aspartate Aminotransferase 24 IU/L (17-59); BUN Creatinine Ratio 12.3 (6-22); Bilirubin Total 0.6 mg/dL (0.2-1.3); Blood Urea Nitrogen 10 mg/dL (9-20); Calcium 9.1 mg/dL (8.4-10.2); Carbon Dioxide 30 mmol/L (22-32); Chloride 103 mmol/L (98-107); Cholesterol 178 mg/dL (140-199); Estimated Glomerular Filt Rate > 60.0 mL/min (>60); Globulin 2.7 g/dL (1.7-4.1); Glucose 92 mg/dL (80-110); HDL Cholesterol 82 mg/dL (40-60); HEMOLYSIS < 15 (0-50); LDL Cholesterol Calculated 86 mg/dL (<100); Magnesium 2.2 mg/dL (1.6-2.3); Potassium 4.3 mmol/L (3.4-5.1); Sodium 139 mmol/L (137-145); Triglycerides 51 mg/dL (35-150)
[2021-07-19 09:56] LABS: Add Manual Diff / Slide Review NO; Basophils Absolute Auto 100 /uL (0-100); Eosinophils Absolute Auto 400 /uL (0-450); Eosinophils Percent Auto 7.8 % (2-4); Hematocrit 43.3 % (41-53); Hemoglobin 13.4 g/dL (13.5-17.5); Lymphocytes Absolute Auto 1600 /uL (1100-4500); Lymphocytes Percent Auto 28.3 % (25-40); Mean Corpuscular HGB Conc 31.1 % (30-36); Mean Corpuscular Hemoglobin 24.6 PG (26-34); Mean Corpuscular Volume 79.2 fL (80-100); Monocytes Absolute Auto 500 /uL (0-900); Monocytes Percent Auto 8.7 % (3-14); Neutrophils Absolute Auto 3000 /uL (1500-7000); Neutrophils Percent Auto 54.2 % (50-75); Platelet Count 256 X10^3/uL (150-400); Red Blood Cell Count 5.46 X10^6/uL (4.5-5.9); Red Cell Distribution Width 16.5 % (11.6-14.8); White Blood Cell Count 5.6 X10^3/uL (4.5-11.0)
== END ==
PROVIDERS: Family Provider Family Medicine; PCP Family Medicine; Referring Provider Physician Assistant Medical; Visit Provider Specialist
DX: E78.00 Pure hypercholesterolemia, unspecified (principal); I48.0 Paroxysmal atrial fibrillation
CPT/HCPCS: 36415; 80053; 80061; 83735; 85025

== ENCOUNTER → 2022-02-26 07:01 | Outpatient (CLI) | payer MEDICARE, OTHER, SELFPAY ==
--- NOTE | 2022-02-26 | DI.ECHO.S_ITS ---
[facility] +---------+ [facility] +---------+ : : [address] : : : [place], [place] : : : : [address] : : : : Phone: [phone]+ Echocardiogram Report + + :Name: EVER HOANG Study Date: 02/26/2022 Height: 77 in : :[facility] ReadingLocation: Weight: 180 lb : : Gender: Male BSA: 2.1 m2 : :: 1945 Age: 76 yrs BP: 149/85 mmHg: :Reason For Study: Mitral Valve- Regurgitation : :Ordering Physician: ALYCE, : :JUVENCIO Performed By: Armando Sheehan : :Referring: JUVENCIO MEAD : + + Interpretation Summary Left ventricular systolic function remains normal with an estimated ejection fraction of around 55% without any focal wall motion abnormality. The left ventricle remains mildly enlarged but unchanged from the previous exam although volumetric analysis was not performed. Left ventricular wall thickness is normal. While diastolic function is challenging to assess because of the lack of a TR jet velocity, there is no compelling evidence for increased filling pressures which are likely similar to the previous exam. The right ventricle remains mildly enlarged but with normal systolic function and appears unchanged from the previous exam. Right ventricular systolic pressure cannot be estimated but CVP is likely around 3 mmHg. There is severe left atrial enlargement with mild to moderate right atrial enlargement but both measures significantly smaller compared to the previous study. There is moderate thickening of the mitral valve leaflets with a flat closure plane but no obvious mitral valve prolapse. There is an eccentric jet of mitral regurgitation directed inferoposteriorly that likely represents moderate mitral regurgitation and grossly appears unchanged from the previous exam. There is no other significant valvular abnormality. Ascending aorta is borderline enlarged but unchanged from the previous exam. The patient was in sinus rhythm at 48-60 bpm throughout the exam. Procedure: A two-dimensional transthoracic echocardiogram with color flow and Doppler was performed. The study quality was technically adequate. Comparison is made with the echocardiogram of 01/06/2021. The patient was in normal sinus rhythm during the exam. Left Ventricle: The left ventricle is mildly dilated. There is normal left ventricular wall thickness. Left ventricular systolic function appears normal without focal wall motion abnormalities. The ejection fraction is estimated to be 55-60%. Diastolic function could not be accurately assessed due to unobtainable data. There is probable normal left ventricular filling pressures, likely unchanged since the previous exam. There has been no significant change since the previous study. Right Ventricle: The right ventricle is mildly dilated. The right ventricular systolic function is normal. This is unchanged compared to the previous study. Atria: The left atrium is severely dilated. The right atrium is mild to moderately dilated. Right atrial volume is 64.3 mL with a volume index of 31 mL/mA?. Both atria measure significantly smaller compared to the previous exam. The interatrial septum grossly appears intact with no obvious evidence for an atrial septal defect. Mitral Valve: The mitral valve leaflets appear moderately thickened, but open well. There is a flat closure plane of the the mitral valve leaflets. There is moderate mitral regurgitation. There is an eccentric jet of mitral regurgitation that is directed inferoposteriorly. This is unchanged compared to the previous study. Aortic Valve: There is mild aortic valve sclerosis. The aortic valve opens well. There is trace aortic regurgitation. Tricuspid Valve: The tricuspid valve is normal in structure and function. There is a trace or physiologic amount of tricuspid regurgitation. Pulmonary artery pressures cannot be estimated because of the lack of a measurable TR jet velocity but the IVC suggests a CVP of around 3 mmHg. Pulmonic Valve: The pulmonic valve is not well seen, but is grossly normal. There is no pulmonic valvular regurgitation. Great Vessels: The aortic root is normal size. The ascending aorta is at the upper limits of normal in size. This is unchanged compared to the previous study. The IVC is of normal diameter and collapses greater than 50% with a sniff. This suggests a low right atrial pressure of 3 mm Hg. Pericardium/ Pleura There is no pericardial effusion. There is no pleural effusion. MMode/2D Measurements & Calculations LVIDd: 5.8 cm LVOT diam: 2.3 cm LVIDs: 3.9 cm Ao root diam: 3.5 cm FS: 34.0 % asc Aorta Diam: 3.6 cm IVSd: 1.0 cm LVPWd: 0.76 cm LV pierce. diameter/BSA (cm/m^2): 2.7 LV sys. diameter/BSA (cm/m^2): 1.8 LA dimension: 4.6 cm RA long axis: 5.7 cm LA A2 area: 34.0 cm2 LA A4 area: 34.8 cm2 LA length (vol): 6.9 cm LA vol: 145.8 ml LA vol index: 68.2 ml/m2 TAPSE_phl: 2.8 cm Doppler Measurements & Calculations Ao V2 max: 131.0 cm/sec LVOT Max Flo: 92.7 cm/sec Ao V2 mean: 85.0 cm/sec LV V1 max P.4 mmHg Ao max P.0 mmHg LV V1 VTI: 20.0 cm Ao mean P.0 mmHg PORTIA(I,D): 3.5 cm2 Ao V2 VTI: 24.0 cm PORTIA(V,D): 2.9 cm2 sev ratio: 0.83 PORTIA indexed to BSA (cm^2/m^2): 1.6 MV E max flo: 72.4 cm/sec SV(LVOT): 83.1 ml MV A max flo: 50.6 cm/sec MV E/A: 1.4 Med Peak E' Flo: 8.3 cm/sec E/E' med: 8.7 Lat Peak E' Flo: 12.3 cm/sec E/E' lat: 5.9 E/e' average: 7.3 MV dec time: 0.15 sec AV VR_phl: 0.71 MV P1/2t-pr_phl: 44.0 msec Reading Physician:05:58 PM
== END ==
PROVIDERS: Family Provider Family Medicine; PCP Family Medicine; Referring Provider Specialist; Visit Provider Specialist
DX: I08.0 Rheumatic disorders of both mitral and aortic valves (principal)
CPT/HCPCS: 93306

== ENCOUNTER → 2022-03-19 08:38 | Outpatient (CLI) | payer MEDICARE, OTHER, SELFPAY ==
[2022-03-19 10:54] LABS: Alanine Aminotransferase 21 IU/L (<50); Albumin 4.3 g/dL (3.5-5.0); Albumin Globulin Ratio 1.5 (1.0-2.8); Alkaline Phosphatase 66 U/L (38-126); Aspartate Aminotransferase 27 IU/L (17-59); Bilirubin Total 0.6 mg/dL (0.2-1.3); Blood Urea Nitrogen 10 mg/dL (9-20); Calcium 8.7 mg/dL (8.4-10.2); Carbon Dioxide 28 mmol/L (22-32); Chloride 103 mmol/L (98-107); Estimated Glomerular Filt Rate > 60 mL/min (>60); Globulin 2.9 g/dL (1.7-4.1); Glucose 89 mg/dL (80-110); HEMOLYSIS < 15 (0-50); Magnesium 2.2 mg/dL (1.6-2.3); Potassium 4.1 mmol/L (3.4-5.1); Sodium 136 mmol/L (137-145); Total Protein 7.2 g/dL (6.3-8.2)
[2022-03-21 12:01] LABS: Cholesterol, Total 178 mg/dL (100-199); HDL-Cholesterol 81 mg/dL (>39); HDL-Particle (Total) 34.8 umol/L (>=30.5); LDL Particle 739 nmol/L (<1000); LDL Size 21.7 nm (>20.5); LDL-Cholsterol 85 mg/dL (0-99); LP-IR Score <25 (<=45); Small LDL- Particle <90 nmol/L (<=527); Triglycerides 65 mg/dL (0-149)
== END ==
PROVIDERS: Family Provider Family Medicine; PCP Family Medicine; Referring Provider Specialist; Visit Provider Specialist
DX: I48.0 Paroxysmal atrial fibrillation (principal); E78.00 Pure hypercholesterolemia, unspecified
CPT/HCPCS: 36415; 80053; 80061; 80299; 83704; 83735

== ENCOUNTER 2022-04-10 11:33 | Emergency (ER) | payer MEDICARE, OTHER, SELFPAY ==
[2022-04-10] VITALS (24 sets, daily range): BP systolic 114–174; BP diastolic 66–104; PULSE 52–104; RESP 15–29; TEMP 36.2; O2SAT 96–99; BMI 20.7
--- NOTE | 2022-04-10 11:37 | DI.RAD.S_ITS ---
PROCEDURE: XR CHEST 1V INDICATIONS: chest pain TECHNIQUE: One view of the chest was acquired. COMPARISON: [facility], CR, XR CHEST 1V, 10/11/2019, 11:31. FINDINGS: Surgical changes and devices: None. Lungs and pleura: Lungs are clear. No pleural effusions or pneumothorax. Mediastinum: Mediastinal contours appear normal. Heart size is enlarged, as before. Bones and chest wall: No suspicious bony lesions. Overlying soft tissues appear unremarkable. IMPRESSION: Cardiomegaly. No acute pulmonary findings. Dictated by: Toma Johns M.D. on 04/10/2022 at 12:24 Approved by: Toma Johns M.D. on 04/10/2022 at 12:25
[2022-04-10 12:00] LABS: Add Manual Diff / Slide Review NO; Basophils Absolute Auto 100 /uL (0-100); Eosinophils Absolute Auto 200 /uL (0-450); Eosinophils Percent Auto 2.3 % (2-4); Hematocrit 43.4 % (41-53); Hemoglobin 14.2 g/dL (13.5-17.5); Lymphocytes Absolute Auto 1800 /uL (1100-4500); Lymphocytes Percent Auto 24.2 % (25-40); Mean Corpuscular HGB Conc 32.8 % (30-36); Mean Corpuscular Hemoglobin 24.4 PG (26-34); Mean Corpuscular Volume 74.3 fL (80-100); Monocytes Absolute Auto 600 /uL (0-900); Monocytes Percent Auto 8.8 % (3-14); Neutrophils Absolute Auto 4700 /uL (1500-7000); Neutrophils Percent Auto 63.7 % (50-75); Platelet Count 243 X10^3/uL (150-400); Red Blood Cell Count 5.84 X10^6/uL (4.5-5.9); Red Cell Distribution Width 16.7 % (11.6-14.8); White Blood Cell Count 7.3 X10^3/uL (4.5-11.0)
[2022-04-10 12:07] LABS: INR 1.4 (0.9-1.3); Prothrombin Time 15.2 SECONDS (10.1-12.7)
[2022-04-10 12:10] LABS: PTT Partial Thromboplastin Tim 37 SECONDS (26.4-36.2)
[2022-04-10 12:22] LABS: Alanine Aminotransferase 19 IU/L (<50); Albumin 4.3 g/dL (3.5-5.0); Albumin Globulin Ratio 1.5 (1.0-2.8); Alkaline Phosphatase 61 U/L (38-126); Aspartate Aminotransferase 26 IU/L (17-59); BUN Creatinine Ratio 11.1 (6-22); Bilirubin Total 0.7 mg/dL (0.2-1.3); Blood Urea Nitrogen 9 mg/dL (9-20); Calcium 8.6 mg/dL (8.4-10.2); Carbon Dioxide 26 mmol/L (22-32); Chloride 106 mmol/L (98-107); Creatine Kinase 95 U/L (55-170); Estimated Glomerular Filt Rate > 60 mL/min (>60); Globulin 2.8 g/dL (1.7-4.1); Glucose 96 mg/dL (80-110); HEMOLYSIS 28 (0-50); Lipase 39 U/L (23-300); Magnesium 2.2 mg/dL (1.6-2.3); Potassium 4.3 mmol/L (3.4-5.1); Sodium 136 mmol/L (137-145); Total Protein 7.1 g/dL (6.3-8.2)
--- NOTE | 2022-04-10 12:30 | ED_ITS ---
HPI - Arrhythmia/Palpitations General Chief Complaint: Arrhythmia/Palpitations Stated Complaint: AFIB, light headed Time Seen by Provider: 04/10/22 11:45 Source: patient Mode of arrival: Ambulatory History of Present Illness HPI narrative: Patient is a 76-year-old male history of atrial fibrillation on flecainide and Eliquis presenting with AFib. He said he has been in it for the last 36 hours. He took an extra dose of flecainide this morning but still feels like he is in it. He says he has been NPO since midnight so he could possibly be cardioverted this morning. He denies any chest pain or palpitations he feels a little lighth eaded. 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 He has not had any fever or chills. Related Data Previous Rx's Medication Instructions Recorded tamsulosin 0.4 mg capsule (Flomax) 0.4 mg PO DAILY #30 caps 06/23/20 Allergies Allergy/AdvReac Type Severity Reaction Status Date / Time bee venom protein (honey bee) Allergy Verified 04/10/22 11:35 Review of Systems Review of Systems Narrative: GENERAL: Denies chills, fatigue, malaise, fever, sweats, travel HEENT: Denies sinus pain, ear pain, sore throat, difficulty swallowing, neck pain RESPIRATORY: Denies dyspnea, cough, wheezing, hemoptysis, sputum. CARDIOVASCULAR: See HPI GASTROINTESTINAL: Denies nausea, vomiting, abdominal pain, diarrhea, constipation, melena. : Denies dysuria, frequency, incontinence, hematuria, urinary retention, flank pain. MUSCULOSKELETAL: Denies weakness, joint pain, or bony pain SKIN: No rash, no erythema, no pruritus NEUROLOGIC: Denies weakness, dizziness, headache, numbness, change in speech, confusion PSYCHIATRIC: No concerning psychosocial issues. 12 point review of systems is negative except for those stated above and HPI Patient History Medical History (Updated 04/10/22 @ 14:13 by Yun Huffman DO) Acute urinary retention Atrial fibrillation Surgical History History of ankle surgery Social History Smoking Status: Never smoker Smoking Status: Never smoker alcohol intake frequency: holidays/special occasions only Substance Use Type: does not use Exam Initial Vital Signs Initial Vital Signs: Vital Signs Temperature 97.2 F L 04/10/22 11:35 Pulse Rate 90 04/10/22 11:35 Respiratory Rate 15 04/10/22 11:35 Blood Pressure 148/81 H 04/10/22 11:35 Pulse Oximetry 97 04/10/22 11:35 Oxygen Delivery Method 04/10/22 11:35 GENERAL: Very pleasant alert 76-year-old male HEENT: Head atraumatic,EOMI, pupils reactive, face symmetric, moist mucous membranes CARDIOVASCULAR: Irregularly irregular no murmur not tachycardic RESPIRATORY: Breath sounds equal bilaterally, no wheezes rales or rhonchi. ABDOMEN: Soft, nontender. Normoactive bowel sounds all 4 quadrants. No guarding or rebound. EXTREMITIES: Normal range of motion, no clubbing or edema. Neurovascularly intact NEUROLOGICAL: Alert and oriented x4.Normal gait and speech. SKIN: Warm, dry, no laceration, no petechiae, no rashes or lesions. Procedures Cardioversion Consent Signed: Yes Indication: Atrial fibrillation Stability: Stable Number of attempts (shocks): 1 Joules used: 150 Cardiac rhythm post-cardioversion: Normal sinus rhythm Procedural Sedation Consent signed: Yes Time out performed: Yes Indication: cardioversion ASA Class: I Mallampati Airway Classification: Class I IV Etomidate dose (mg): 8 Intraservice time/total sedation time (min): 12 ED Sedation Level: Moderate (Concious) Patient Tolerated Procedure: Well and No complications Course Orders Ordered: ED Orders 04/10/22 11:37 XR chest 1V Stat EKG-12 Lead Stat 04/10/22 11:50 Complete Blood Count AUTO DIFF Stat Comprehensive Metabolic Panel Stat Lipase Stat Magnesium Stat Partial Thromboplastin Time Stat Prothrombin Time INR Stat Troponin & CK Cardiac Panel Stat Discontinued Medications Etomidate (Etomidate 2 Mg/Ml 10 Ml Vial) 8 mg IV NOW ONE Stop: 04/10/22 12:42 Last Admin: 04/10/22 13:44 Dose: 8 mg Documented By: NR Sodium Chloride (Normal Saline 0.9%) 1,000 mls @ 1,000 mls/hr IV BOLUS ONE Stop: 04/10/22 13:41 Last Infusion: 04/10/22 14:41 Dose: 0 mls/hr Documented By: Admin: 04/10/22 12:48 Dose: 1,000 mls/hr Documented By: GAY Metoprolol Tartrate (Metoprolol Tartrate 5 Mg/5 Ml Inj) 5 mg IV NOW ONE Stop: 04/10/22 12:42 Last Admin: 04/10/22 12:48 Dose: 5 mg Documented By: GAY Vital Signs Vital signs: Vital Signs - 8 hr 04/10/22 11:35 04/10/22 11:41 04/10/22 11:49 Temperature 97.2 F L Pulse Rate 90 104 H Respiratory Rate 15 Blood Pressure 148/81 H 174/104 H Pulse Oximetry 97 Oxygen Delivery Method Room Air 04/10/22 12:00 04/10/22 12:01 04/10/22 12:01 Temperature Pulse Rate 91 H 85 Respiratory Rate Blood Pressure 121/73 Pulse Oximetry 99 98 Oxygen Delivery Method 04/10/22 12:30 04/10/22 12:30 04/10/22 12:50 Temperature Pulse Rate 92 H Respiratory Rate 20 Blood Pressure 127/85 126/80 Pulse Oximetry 97 Oxygen Delivery Method 04/10/22 12:50 04/10/22 12:59 04/10/22 13:00 Temperature Pulse Rate 94 H 70 Respiratory Rate 17 Blood Pressure 114/66 Pulse Oximetry 97 96 Oxygen Delivery Method 04/10/22 13:00 04/10/22 13:30 04/10/22 13:30 Temperature Pulse Rate 76 75 Respiratory Rate 22 27 H Blood Pressure 126/87 Pulse Oximetry 97 98 Oxygen Delivery Method 04/10/22 13:40 04/10/22 13:40 04/10/22 13:45 Temperature Pulse Rate 75 Respiratory Rate 20 Blood Pressure 121/84 133/83 Pulse Oximetry 97 Oxygen Delivery Method 04/10/22 13:45 04/10/22 13:51 04/10/22 13:51 Temperature Pulse Rate 52 L 57 L Respiratory Rate 17 23 Blood Pressure 117/74 Pulse Oximetry 97 98 Oxygen Delivery Method 04/10/22 13:55 04/10/22 13:55 04/10/22 13:59 Temperature Pulse Rate 59 L 58 L Respiratory Rate 16 16 Blood Pressure 115/73 Pulse Oximetry 97 98 Oxygen Delivery Method 04/10/22 14:00 04/10/22 14:00 04/10/22 14:05 Temperature Pulse Rate 58 L Respiratory Rate 20 Blood Pressure 120/73 125/77 Pulse Oximetry 98 Oxygen Delivery Method 04/10/22 14:05 04/10/22 14:10 04/10/22 14:10 Temperature Pulse Rate 59 L 61 Respiratory Rate 18 22 Blood Pressure 131/81 Pulse Oximetry 98 98 Oxygen Delivery Method 04/10/22 14:23 04/10/22 14:15 04/10/22 14:15 Temperature Pulse Rate 85 60 Respiratory Rate 16 18 Blood Pressure 123/76 Pulse Oximetry 98 Oxygen Delivery Method 04/10/22 14:20 04/10/22 14:20 04/10/22 14:25 Temperature Pulse Rate 63 Respiratory Rate 23 Blood Pressure 132/81 135/84 Pulse Oximetry 98 Oxygen Delivery Method 04/10/22 14:25 04/10/22 14:30 04/10/22 14:30 Temperature Pulse Rate 66 63 Respiratory Rate 29 H 17 Blood Pressure 128/79 Pulse Oximetry 98 98 Oxygen Delivery Method 04/10/22 14:35 04/10/22 14:35 Temperature Pulse Rate 62 Respiratory Rate 20 Blood Pressure 121/77 Pulse Oximetry 98 Oxygen Delivery Method MDM - Arrhythmia/Palpitations Lab Data Result diagrams: 04/10/22 11:50 04/10/22 11:50 Labs: Lab Results 04/10/22 04/10/22 04/10/22 Range/Units 11:50 11:50 11:50 WBC 7.3 (4.5-11.0) X10^3/uL RBC 5.84 (4.5-5.9) X10^6/uL Hgb 14.2 (13.5-17.5) g/dL Hct 43.4 (41-53) % MCV 74.3 L (80-100) fL MCH 24.4 L (26-34) PG MCHC 32.8 (30-36) % RDW 16.7 H (11.6-14.8) % Plt Count 243 (150-400) X10^3/uL Neut % (Auto) 63.7 (50-75) % Lymph % (Auto) 24.2 L (25-40) % [place] % (Auto) 8.8 (3-14) % Eos % (Auto) 2.3 (2-4) % Baso % (Auto) 1.0 (0-2) % Neut # (Auto) 4700 (8787-3453) /uL Lymph # (Auto) 1800 (3496-3371) /uL [place] # (Auto) 600 (0-900) /uL Eos # (Auto) 200 (0-450) /uL Baso # (Auto) 100 (0-100) /uL PT 15.2 H (10.1-12.7) SECONDS INR 1.4 H (0.9-1.3) APTT 37 H (26.4-36.2) SECONDS Sodium 136 L (137-145) mmol/L Potassium 4.3 (3.4-5.1) mmol/L Chloride 106 (98-107) mmol/L Carbon Dioxide 26 (22-32) mmol/L BUN 9 (9-20) mg/dL Creatinine 0.81 (0.66-1.25) mg/dL Estimated GFR > 60 (>60) mL/min BUN/Creatinine Ratio 11.1 (6-22) Glucose 96 (80-110) mg/dL Calcium 8.6 (8.4-10.2) mg/dL Magnesium 2.2 (1.6-2.3) mg/dL Total Bilirubin 0.7 (0.2-1.3) mg/dL AST 26 (17-59) IU/L ALT 19 (<50) IU/L Alkaline Phosphatase 61 (38-126) U/L Total Creatine Kinase 95 (55-170) U/L CK-MB (CK-2) TNP CK-MB (CK-2) Rel Index TNP Troponin I < 0.012 (0.01-0.034) ng/mL Total Protein 7.1 (6.3-8.2) g/dL Albumin 4.3 (3.5-5.0) g/dL Globulin 2.8 (1.7-4.1) g/dL Albumin/Globulin Ratio 1.5 (1.0-2.8) Lipase 39 (23-300) U/L Imaging Data Chest x-ray: Radiologist's Impresson: [place] [id number] XRay Report Signed Patient: Marco Crews MR#: [id number] : 1945 Acct:[id number] Age/Sex: 76 / M Date of Service: 04/10/22 Loc: ED Accession Number: [id number] ?? Procedure: XR chest 1V Ordering Provider: Yun Huffman D.O. PROCEDURE:? XR CHEST 1V ? INDICATIONS:? chest pain ? TECHNIQUE:? One view of the chest was acquired.? ? COMPARISON:? [facility], CR, XR CHEST 1V, 10/11/2019, 11:31. ? FINDINGS:? ? Surgical changes and devices:? None.? ? Lungs and pleura:? Lungs are clear.? No pleural effusions or pneumothorax.? ? Mediastinum:? Mediastinal contours appear normal.? Heart size is enlarged, as before. ? Bones and chest wall:? No suspicious bony lesions.? Overlying soft tissues appear unremarkable.? ? IMPRESSION:? Cardiomegaly.? No acute pulmonary findings.? ? ? Dictated by: Toma Johns M.D. on 04/10/2022 at 12:24 ? ? ECG Data Interpretation: EKG 1. Atrial fibrillation rate [address] changes EKG 2. Normal sinus rhythm rate 54 NV interval 246 QRS [address] changes MDM Narrative Medical decision making narrative: The patient does have a history of AFib he is on Eliquis he has not missed any Eliquis. He has been in AFib for under 48 hours. No contraindication to cardioversion. He is on flecainide took an extra dose of flecainide this morning it has not helped her worked. Gave him a dose of metoprolol here in the ED it looked as though he was trying to convert but he did not. He was successfully and easily cardioverted. 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 He actually just had an echocardiogram with an EF of 55% in February and no significant abnormality of the left ventricle is mildly enlarged but remained unchanged from prior exam. Discharge Plan Departure Patient Disposition: Home Clinical Impression: Atrial fibrillation Instructions: DI for Atrial Fibrillation Activity Restrictions/Additional Instructions: *You have been diagnosed with atrial fibrillation *What to do: Your successfully cardioverted today *Continue to take medications as directed *Follow up with your primary care provider in 2-3 days or call [phone] *Return to ER if you should have increased palpitations pain or any new, worsening or concerning symptoms Prescriptions: No Action tamsulosin [Flomax] 0.4 mg capsule 0.4 mg PO DAILY Qty: 30 0RF Referrals: Bhargav Webster MD [Primary Care Provider] - Te Art MD [Physician] - Visit Report Forms: Patient Portal/API
[2022-04-10 12:34] LABS: Troponin I < 0.012 ng/mL (0.01-0.034)
[2022-04-10] MEDS: SODIUM CHLORIDE 0.9% 1,000 ML 1000 ML IV (12:48)
[2022-04-10] MEDS: METOPROLOL TARTRATE 5 MG/5 ML INJ IV (12:48)
[2022-04-10] MEDS: ETOMIDATE 2 MG/ML 10 ML VIAL 8 MG IV (13:44)
== END 2022-04-10 14:42 | disposition home or self-care (01) ==
PROVIDERS: Emergency Provider Emergency Medicine; Family Provider Family Medicine; PCP Family Medicine; Referring Provider Specialist
DX: I48.91 Unspecified atrial fibrillation (principal); Z79.01 Long term (current) use of anticoagulants
CPT/HCPCS: 36415; 71045; 80053; 82550; 83690; 83735; 84484; 85025; 85610; 85730; 92960; 93005; 93010; 96361; 96374; 99285

== ENCOUNTER → 2022-04-20 08:33 | Outpatient (CLI) | payer MEDICARE, OTHER, SELFPAY | PROVIDERS: Family Provider Family Medicine; PCP Family Medicine; Referring Provider Specialist; Visit Provider Specialist | DX: I48.0 Paroxysmal atrial fibrillation (principal) | CPT/HCPCS: 36415; 80299 ==

== ENCOUNTER → 2022-09-17 08:35 | Outpatient (CLI) | payer MEDICARE, OTHER, SELFPAY ==
[2022-09-17 09:21] LABS: Add Manual Diff / Slide Review NO; Basophils Absolute Auto 100 /uL (0-100); Basophils Percent Auto 1.1 % (0-2); Eosinophils Absolute Auto 300 /uL (0-450); Eosinophils Percent Auto 5.7 % (2-4); Hematocrit 40.3 % (41-53); Lymphocytes Absolute Auto 1500 /uL (1100-4500); Lymphocytes Percent Auto 31.8 % (25-40); Mean Corpuscular HGB Conc 32.3 % (30-36); Mean Corpuscular Volume 74.2 fL (80-100); Monocytes Absolute Auto 500 /uL (0-900); Monocytes Percent Auto 9.9 % (3-14); Neutrophils Absolute Auto 2400 /uL (1500-7000); Neutrophils Percent Auto 51.5 % (50-75); Platelet Count 263 X10^3/uL (150-400); Red Blood Cell Count 5.42 X10^6/uL (4.5-5.9); Red Cell Distribution Width 16.7 % (11.6-14.8); White Blood Cell Count 4.7 X10^3/uL (4.5-11.0)
[2022-09-17 11:48] LABS: Alanine Aminotransferase 23 IU/L (<50); Albumin 4.1 g/dL (3.5-5.0); Albumin Globulin Ratio 1.7 (1.0-2.8); Alkaline Phosphatase 76 U/L (38-126); Aspartate Aminotransferase 24 IU/L (17-59); Bilirubin Total 0.7 mg/dL (0.2-1.3); Blood Urea Nitrogen 8 mg/dL (9-20); Calcium 8.9 mg/dL (8.4-10.2); Carbon Dioxide 26 mmol/L (22-32); Chloride 101 mmol/L (98-107); Estimated Glomerular Filt Rate > 60 mL/min (>60); Globulin 2.4 g/dL (1.7-4.1); Glucose 86 mg/dL (80-110); HEMOLYSIS < 15 (0-50); Magnesium 2.1 mg/dL (1.6-2.3); Sodium 136 mmol/L (137-145); Total Protein 6.5 g/dL (6.3-8.2)
[2022-09-17 12:35] LABS: Potassium 4.2 mmol/L (3.4-5.1)
[2022-09-19 12:19] LABS: Cholesterol, Total 171 mg/dL (100-199); HDL-Cholesterol 81 mg/dL (>39); HDL-Particle (Total) 36.1 umol/L (>=30.5); LDL Particle 639 nmol/L (<1000); LDL Size 21.3 nm (>20.5); LDL-Cholsterol 79 mg/dL (0-99); LP-IR Score <25 (<=45); Small LDL- Particle <90 nmol/L (<=527); Triglycerides 52 mg/dL (0-149)
== END ==
PROVIDERS: Family Provider Family Medicine; PCP Family Medicine; Referring Provider Specialist; Visit Provider Specialist
DX: R06.00 Dyspnea, unspecified (principal); I48.0 Paroxysmal atrial fibrillation; E78.00 Pure hypercholesterolemia, unspecified
CPT/HCPCS: 36415; 80053; 80061; 83704; 83735; 85025

== ENCOUNTER → 2023-03-19 12:40 | Outpatient (CLI) | payer MEDICARE, OTHER, SELFPAY ==
--- NOTE | 2023-03-19 | DI.ECHO.S_ITS ---
[facility] +---------+ : : [address] [place] [address] : : : : [id number] : : : : Phone: [phone] Echocardiogram Report + + :Name: EVER HOANG Study Date: 03/19/2023 Height: 77 in : :[facility] ReadingLocation: Weight: 175 lb : : Gender: Male BSA: 2.1 m2 : :: 1945 Age: 77 yrs BP: 116/71 mmHg: :Reason For Study: MITRAL INSUFFICIENCY : :Ordering Physician: ALYCE, : :JUVENCIO Performed By: Lois Ortiz : :Referring: ROBSON COX : + + Interpretation Summary Left ventricular systolic function appears normal with an estimated ejection fraction of 55 to 60% without any focal wall motion abnormality and appears slightly more dynamic compared to the previous study. There continues to be mild left ventricular enlargement with an end-diastolic volume of 146 mL but likely similar to the previous study. Diastolic function is likely normal with probable normal filling pressures. The right ventricle remains mildly enlarged with normal systolic function but appears unchanged. Right ventricular systolic pressure is likely around 25 mmHg with a CVP of 3 to 8 mmHg. The IVC is relatively small but with reduced inspiratory collapse. There is severe biatrial enlargement with both atria measuring significantly larger. There continues to be moderate thickening and redundancy of the mitral valve leaflets with borderline bileaflet prolapse producing probable moderate, perhaps moderate-severe mitral regurgitation with an eccentric jet that grossly appears unchanged from the previous exam although imaged with different equipment making direct comparison somewhat more challenging. There is no other significant valvular abnormality. The ascending aorta and aortic arch remain borderline enlarged but likely unchanged. Procedure: A two-dimensional transthoracic echocardiogram with color flow and Doppler was performed. The study quality was technically good. Comparison is made with the echocardiogram of 02/26/2022. The patient was in sinus rhythm with heart rates between 60-67 bpm during the exam. Left Ventricle: The left ventricle is mildly dilated. The estimated left ventricular end diastolic volume is 146 ml. There is normal left ventricular wall thickness. The ejection fraction is estimated to be 55-60%. Left ventricular systolic function appears normal without focal wall motion abnormalities. This is unchanged compared to the previous study. Diastolic parameters suggest probable normal left ventricular diastolic function and normal filling pressures. This is likely similar compared to the previous study. Right Ventricle: The right ventricle is mildly dilated. The right ventricular systolic function is normal. This is unchanged compared to the previous study. Atria: There is severe biatrial enlargement. Both atria have significantly increased in size since the prior echo exam. There is no Doppler evidence for an interatrial shunt. Mitral Valve: The mitral valve leaflets appear moderately thickened, but open well. There is borderline mitral valve prolapse. There is moderate mitral regurgitation. The mitral regurgitant jet is eccentrically directed. This is similar compared to the previous study. Aortic Valve: The aortic valve is trileaflet. The aortic valve is slightly calcified. The aortic valve opens well. There is no aortic valve stenosis. There is trace aortic regurgitation. Tricuspid Valve: The tricuspid valve is normal in structure and function. There is trace tricuspid regurgitation. The right ventricular systolic pressure is estimated to be at least 26 mmHg based on an estimated right atrial pressure of 8 mm Hg. Pulmonic Valve: The pulmonic valve is not well seen, but is grossly normal. There is no pulmonic valvular regurgitation. Great Vessels: The aortic root is normal size. The ascending aorta is at the upper limits of normal in size. The aortic arch is at the upper limits of normal in size. The IVC is of normal diameter and collapses less than 50% with a sniff. This suggests a right atrial pressure of 8 mm Hg. Pericardium/ Pleura There is no pericardial effusion. There is no pleural effusion. MMode/2D Measurements & Calculations LVIDd: 5.9 cm LVOT diam: 2.1 cm LVIDs: 3.6 cm Ao root diam: 3.6 cm FS: 39.5 % asc Aorta Diam: 3.5 cm EPSS: 0.44 cm Ao Arch Diam (Prox Trans): 3.1 cm IVSd: 0.85 cm LVPWd: 0.90 cm LV pierce. diameter/BSA (cm/m^2): 2.8 LV sys. diameter/BSA (cm/m^2): 1.7 LA A2 area: 42.2 cm2 RA long axis: 5.7 cm LA A4 area: 32.6 cm2 RA area: 27.2 cm2 LA length (vol): 6.6 cm RA vol: 110.6 ml LA vol: 177.8 ml RA : 52.4 ml/m2 LA vol index: 84.1 ml/m2 IVC diam: 1.1 cm RVD1 (basal): 4.7 cm RVD2 (mid): 3.0 cm TAPSE: 2.7 cm Doppler Measurements & Calculations Ao V2 max: 163.3 cm/sec LVOT Max Flo: 107.6 cm/sec Ao V2 mean: 119.5 cm/sec LV V1 max P.6 mmHg Ao max P.7 mmHg LV V1 VTI: 20.8 cm Ao mean P.2 mmHg PORTIA(I,D): 2.3 cm2 Ao V2 VTI: 32.4 cm PORTIA(V,D): 2.4 cm2 sev ratio: 0.64 PORTIA indexed to BSA (cm^2/m^2): 1.1 MV E max flo: 79.2 cm/sec TR max flo: 212.6 cm/sec MV A max flo: 49.2 cm/sec TR max P.1 mmHg MV E/A: 1.6 PA pr(Accel): 29.3 mmHg Med Peak E' Flo: 8.4 cm/sec E/E' med: 9.4 Lat Peak E' Flo: 8.4 cm/sec E/E' lat: 9.5 E/e' average: 9.4 MV dec time: 0.21 sec SV(LVOT): 74.5 ml Reading Physician:02:46 PM
== END ==
PROVIDERS: Family Provider Family Medicine; PCP Family Medicine; Referring Provider Physician Assistant Medical; Visit Provider Specialist
DX: I34.0 Nonrheumatic mitral (valve) insufficiency (principal)
CPT/HCPCS: 93306

== ENCOUNTER → 2023-03-25 08:32 | Outpatient (CLI) | payer MEDICARE, OTHER, SELFPAY ==
[2023-03-25 11:29] LABS: Alanine Aminotransferase 27 IU/L (<50); Albumin 3.9 g/dL (3.5-5.0); Alkaline Phosphatase 73 U/L (38-126); Aspartate Aminotransferase 26 IU/L (17-59); BUN Creatinine Ratio 13.4 (6-22); Bilirubin Total 0.8 mg/dL (0.2-1.3); Blood Urea Nitrogen 11 mg/dL (9-20); Calcium 8.9 mg/dL (8.4-10.2); Carbon Dioxide 27 mmol/L (22-32); Chloride 101 mmol/L (98-107); Estimated Glomerular Filt Rate > 60 mL/min (>60); Glucose 86 mg/dL (80-110); HEMOLYSIS < 15 (0-50); Magnesium 2.3 mg/dL (1.6-2.3); Potassium 4.7 mmol/L (3.4-5.1); Sodium 134 mmol/L (137-145); Total Protein 6.7 g/dL (6.3-8.2)
[2023-03-25 11:30] LABS: Albumin Globulin Ratio 1.4 (1.0-2.8); Cholesterol 171 mg/dL (140-199); Globulin 2.8 g/dL (1.7-4.1); HDL Cholesterol 84 mg/dL (40-60); LDL Cholesterol Calculated 77 mg/dL (<100); Triglycerides 51 mg/dL (35-150)
== END ==
PROVIDERS: Family Provider Family Medicine; PCP Family Medicine; Referring Provider Specialist; Visit Provider Specialist
DX: I48.0 Paroxysmal atrial fibrillation (principal); E78.00 Pure hypercholesterolemia, unspecified
CPT/HCPCS: 36415; 80053; 80061; 80299; 83735

== ENCOUNTER 2024-01-08 14:06 | Emergency (ER) | payer MEDICARE, OTHER, SELFPAY ==
[2024-01-08 14:21] VITALS: BP 173/93; PULSE 80; RESP 20; TEMP 36.8; O2SAT 99; BMI 20.7
--- NOTE | 2024-01-08 14:26 | DI.RAD.S_ITS ---
PROCEDURE: XR CHEST 1V INDICATIONS: chest pain TECHNIQUE: One view of the chest was acquired. COMPARISON: [facility], CR, XR CHEST 1V, 04/10/2022, 12:06. FINDINGS: Surgical changes and devices: None. Lungs and pleura: Lungs are clear. No pleural effusions or pneumothorax. Mediastinum: Mediastinal contours appear normal. Heart size is normal. Bones and chest wall: No suspicious bony lesions. Overlying soft tissues appear unremarkable. IMPRESSION: No acute cardiopulmonary abnormality is seen. Dictated by: Amanuel Bean M.D. on 01/08/2024 at 15:19 Approved by: Amanuel Bean M.D. on 01/08/2024 at 15:19
--- NOTE | 2024-01-08 14:56 | ED.ARRPALP ---
HPI - Arrhythmia/Palpitations General Chief Complaint: Arrhythmia/Palpitations Stated Complaint: per pt Entered atrial fib at 1AM Time Seen by Provider: 01/08/24 14:56 History of Present Illness HPI narrative: 78-year-old male presents by private vehicle from home for atrial fibrillation. Patient has a history of AFib and is on flecainide and Eliquis. He states he is normally in sinus rhythm at approximately 1:00 a.m. he felt himself go into atrial fibrillation. He tried to take an additional 50 mg of his usual flecainide but this did not convert him and he was referred to the ER for evaluation. Patient reports compliant with his Eliquis and has not missed any doses. Related Data Previous Rx's Medication Instructions Recorded tamsulosin 0.4 mg capsule (Flomax) 0.4 mg PO DAILY #30 caps 06/23/20 flecainide 150 mg tablet 150 mg PO Q12H #60 tabs 01/08/24 Allergies Allergy/AdvReac Type Severity Reaction Status Date / Time bee venom protein (honey bee) Allergy Verified 04/10/22 11:35 Review of Systems Review of Systems Narrative: Negative except as noted above Patient History Medical History Acute urinary retention Atrial fibrillation Surgical History History of ankle surgery Social History Smoking Status: Never smoker Smoking Status: Never smoker alcohol intake frequency: holidays/special occasions only Alcohol type: wine Substance Use Type: does not use Exam Initial Vital Signs Initial Vital Signs: Vital Signs Temperature 98.3 F 01/08/24 14:21 Pulse Rate 80 01/08/24 14:21 Respiratory Rate 20 01/08/24 14:21 Blood Pressure 173/93 H 01/08/24 14:21 Pulse Oximetry 99 01/08/24 14:21 Oxygen Delivery Method Room Air 01/08/24 14:21 Const: Awake, alert, no acute distress, nontoxic appearing Cardiac: Irregularly irregular rhythm RESP: unlabored, clear bilaterally, no wheezing GI: Soft, nontender, nondistended, no rebound, no guarding MSK: Atraumatic, full range of motion, pulses equal Skin: Warm, Dry, intact, no rashes Neuro: AO x3, CN II-XII grossly intact, moves all extremities Procedures Cardioversion Consent Signed: Yes Indication: Atrial fibrillation Stability: Stable Number of attempts (shocks): 2 Joules used: 150 and 200 Additional Comments: Conversion to sinus rhythm after 2 attempts Procedural Sedation Consent signed: Yes Time out performed: Yes Indication: cardioversion ASA Class: II Mallampati Airway Classification: Class I Time of Last PO Intake: 07:00 Preparation: hospital monitor applied, pulse oximeter, capnometry used, supplemental O2 applied, suction/airway equipment at bedside and IV secured IV Propofol dose (mg): 70 Intraservice time/total sedation time (min): 15 ED Sedation Level: Moderate (Concious) Patient Tolerated Procedure: Well and No complications Complications: none Additional Comments: Patient tolerated procedure well Course Orders Ordered: Discontinued Medications Aspirin (Aspirin 81 Mg Chew Tab) 324 mg PO NOW ONE Stop: 01/08/24 14:27 Last Admin: 01/08/24 14:52 Dose: Not Given Documented By: JAGDISH Sodium Chloride (Normal Saline 0.9%) 1,000 mls @ 1,000 mls/hr IV BOLUS ONE Stop: 01/08/24 16:37 Last Infusion: 01/08/24 16:40 Dose: Infused Documented By: Admin: 01/08/24 15:39 Dose: 1,000 mls/hr Documented By: JACKI Propofol (Propofol 200 Mg/20 Ml Vial) 160 mg 2 mg/kg (160 mg) IV NOW ONE Stop: 01/08/24 15:33 Last Admin: 01/08/24 16:16 Dose: 70 mg Documented By: WILMER Vital Signs Vital signs: Vital Signs - 8 hr 01/08/24 14:21 Temperature 98.3 F Pulse Rate 80 Respiratory Rate 20 Blood Pressure 173/93 H Pulse Oximetry 99 Oxygen Delivery Method Room Air MDM - Arrhythmia/Palpitations Differential Diagnosis Differential diagnosis: Likely palpitations, anxiety and sinus tachycardia Lab Data 01/08/24 15:01 01/08/24 15:01 Labs: Lab Results 01/08/24 Range/Units 15:01 WBC 8.0 (4.5-11.0) X10^3/uL RBC 5.67 (4.5-5.9) X10^6/uL Hgb 15.9 (13.5-17.5) g/dL Hct 48.1 (41-53) % MCV 84.8 (80-100) fL MCH 28.0 (26-34) PG MCHC 32.9 (30-36) % RDW 17.4 H (11.6-14.8) % Plt Count 231 (150-400) X10^3/uL Neut % (Auto) 65.2 (50-75) % Lymph % (Auto) 21.5 L (25-40) % [place] % (Auto) 9.2 (3-14) % Eos % (Auto) 3.3 (2-4) % Baso % (Auto) 0.8 (0-2) % Neut # (Auto) 5200 (6732-1492) /uL Lymph # (Auto) 1700 (8003-7032) /uL [place] # (Auto) 700 (0-900) /uL Eos # (Auto) 300 (0-450) /uL Baso # (Auto) 100 (0-100) /uL PT 13.8 H (9.4-12.5) SECONDS INR 1.2 (0.9-1.3) APTT 40 H (25.1-36.5) SECONDS Sodium 135 L (137-145) mmol/L Potassium 4.1 (3.4-5.1) mmol/L Chloride 104 (98-107) mmol/L Carbon Dioxide 26 (22-32) mmol/L BUN 12 (9-20) mg/dL Creatinine 0.75 (0.66-1.25) mg/dL Estimated GFR > 60 (>60) mL/min BUN/Creatinine Ratio 16.0 (6-22) Glucose 96 (80-110) mg/dL Calcium 8.8 (8.4-10.2) mg/dL Magnesium 2.1 (1.6-2.3) mg/dL Total Bilirubin 0.9 (0.2-1.3) mg/dL AST 27 (17-59) IU/L ALT 28 (<50) IU/L Alkaline Phosphatase 66 (38-126) U/L Total Creatine Kinase 82 (55-170) U/L Troponin I < 0.012 (0.01-0.034) ng/mL Total Protein 6.9 (6.3-8.2) g/dL Albumin 4.1 (3.5-5.0) g/dL Globulin 2.8 (1.7-4.1) g/dL Albumin/Globulin Ratio 1.5 (1.0-2.8) Lipase 36 (23-300) U/L ECG Data Interpretation: Postprocedure EKG : Sinus rhythm with first-degree AV block, 65 beats per minute, no ST T wave changes, no STEMI MDM Narrative Medical decision making narrative: Well-appearing patient who converted from sinus rhythm to atrial fibrillation last night, not improved with additional p.o. flecainide. Patient hemodynamically stable, reports discomfort from being in atrial fibrillation as he states he was not tolerate this state well. Laboratory work is reviewed, electrolytes within normal limits, patient remains hemodynamically stable. He has been compliant with his Eliquis and is a candidate for cardioversion. Patient cardioverted after 2 attempts with initial synchronized attempt at 150 joules and successful, however 2nd attempt at 200 joules successful. Discussed patient's case with his manager consumer insights Dr. Art, who recommended increasing flecainide to 150 mg b.i.d. and follow up 1 week in clinic for repeat EKG. Discussed all lab and imaging findings as well as cardiology recommendations with the patient and at bedside. Refill of patient's flecainide sent to pharmacy of choice. ED return precautions discussed at bedside. Patient expressed understanding of the plan and is in agreement at this time. All questions answered at the time of discharge. Discharge Plan Departure Patient Disposition: Home Clinical Impression: Atrial fibrillation Instructions: DI for Atrial Fibrillation Activity Restrictions/Additional Instructions: Dr. Art wants you to increase her flecainide dose to 150 mg twice daily. You will need a repeat EKG in 1 week, either at the cardiology office or your primary care doctor's office. Prescriptions: New flecainide 150 mg tablet 150 mg PO Q12H Qty: 60 0RF No Action tamsulosin [Flomax] 0.4 mg capsule 0.4 mg PO DAILY Qty: 30 0RF Referrals: Bhargav Webster MD [Primary Care Provider] - Stand Alone Forms: Patient Portal/API
[2024-01-08 15:13] LABS: Add Manual Diff / Slide Review NO; Basophils Absolute Auto 100 /uL (0-100); Basophils Percent Auto 0.8 % (0-2); Eosinophils Absolute Auto 300 /uL (0-450); Eosinophils Percent Auto 3.3 % (2-4); Hematocrit 48.1 % (41-53); Hemoglobin 15.9 g/dL (13.5-17.5); Lymphocytes Absolute Auto 1700 /uL (1100-4500); Lymphocytes Percent Auto 21.5 % (25-40); Mean Corpuscular HGB Conc 32.9 % (30-36); Mean Corpuscular Volume 84.8 fL (80-100); Monocytes Absolute Auto 700 /uL (0-900); Monocytes Percent Auto 9.2 % (3-14); Neutrophils Absolute Auto 5200 /uL (1500-7000); Neutrophils Percent Auto 65.2 % (50-75); Platelet Count 231 X10^3/uL (150-400); Red Blood Cell Count 5.67 X10^6/uL (4.5-5.9); Red Cell Distribution Width 17.4 % (11.6-14.8)
[2024-01-08 15:21] LABS: INR 1.2 (0.9-1.3); Prothrombin Time 13.8 SECONDS (9.4-12.5)
[2024-01-08 15:24] LABS: PTT Partial Thromboplastin Tim 40 SECONDS (25.1-36.5)
[2024-01-08 15:25] LABS: Alanine Aminotransferase 28 IU/L (<50); Albumin 4.1 g/dL (3.5-5.0); Albumin Globulin Ratio 1.5 (1.0-2.8); Alkaline Phosphatase 66 U/L (38-126); Aspartate Aminotransferase 27 IU/L (17-59); Bilirubin Total 0.9 mg/dL (0.2-1.3); Blood Urea Nitrogen 12 mg/dL (9-20); Calcium 8.8 mg/dL (8.4-10.2); Carbon Dioxide 26 mmol/L (22-32); Chloride 104 mmol/L (98-107); Creatine Kinase 82 U/L (55-170); Estimated Glomerular Filt Rate > 60 mL/min (>60); Globulin 2.8 g/dL (1.7-4.1); Glucose 96 mg/dL (80-110); HEMOLYSIS 18 (0-50); Lipase 36 U/L (23-300); Magnesium 2.1 mg/dL (1.6-2.3); Potassium 4.1 mmol/L (3.4-5.1); Sodium 135 mmol/L (137-145); Total Protein 6.9 g/dL (6.3-8.2)
[2024-01-08 15:37] LABS: Troponin I < 0.012 ng/mL (0.01-0.034)
[2024-01-08] MEDS: SODIUM CHLORIDE 0.9% 1,000 ML 1000 ML IV (15:39)
[2024-01-08] MEDS: propofoL 200 MG/20 ML VIAL 160 MG IV (16:16)
--- NOTE | 2024-01-08 16:38 | PC.NURSE ---
all procedural sedation notes done by Junie RN
[2024-01-08 16:53] VITALS: PULSE 66; RESP 18; O2SAT 96
[2024-01-08 16:55] VITALS: BP 137/74; PULSE 69; RESP 11; O2SAT 97
== END 2024-01-08 17:26 | disposition home or self-care (01) ==
PROVIDERS: Emergency Provider Emergency Medicine; Family Provider Family Medicine; PCP Family Medicine
DX: I48.91 Unspecified atrial fibrillation (principal)
CPT/HCPCS: 36415; 71045; 80053; 82550; 83690; 83735; 84484; 85025; 85610; 85730; 92960; 93005; 99152; 99285; J2704

== ENCOUNTER 2024-01-25 11:21 | Emergency (ER) | payer MEDICARE, OTHER, SELFPAY ==
[2024-01-25] VITALS (26 sets, daily range): BP systolic 113–159; BP diastolic 62–89; PULSE 66–96; RESP 13–24; TEMP 36.4–36.5; O2SAT 96–99; BMI 21.3
--- NOTE | 2024-01-25 11:31 | DI.RAD.S_ITS ---
PROCEDURE: XR CHEST 1V INDICATIONS: chest pain TECHNIQUE: One view of the chest was acquired. COMPARISON: [facility], CR, XR CHEST 1V, 01/08/2024, 14:52. FINDINGS: Surgical changes and devices: None. Lungs and pleura: Lungs are clear. No pleural effusions or pneumothorax. Mediastinum: Mediastinal contours appear normal. Heart size is normal. Bones and chest wall: No suspicious bony lesions. Overlying soft tissues appear unremarkable. IMPRESSION: No acute pulmonary process. Dictated by: Fannie Zacarias M.D. on 01/25/2024 at 11:48 Approved by: Fannie Zacarias M.D. on 01/25/2024 at 11:49
--- NOTE | 2024-01-25 11:37 | ED_ITS ---
HPI - Arrhythmia/Palpitations General Chief Complaint: Arrhythmia/Palpitations Stated Complaint: AFIB Time Seen by Provider: 01/25/24 11:37 Source: patient Mode of arrival: Ambulatory Limitations: no limitations History of Present Illness HPI narrative: 78-year-old male with a history of atrial fibrillation, BPH and dyslipidemia on flecainide 150 mg b.i.d. as well as Eliquis daily. Patient presents with complaint of atrial fibrillation patient can feel that his heart rate is regular feels a little lightheaded denies any syncope. No chest pain, no shortness of breath, no fevers or chills, no cold cough congestion. No nausea or vomiting no issues with bowel movements such as diarrhea or constipation. No new swelling in his lower extremities. Patient notes he was here about 17 days ago in AFib had a cardioversion and was increased from 100-150 mg b.i.d. of his flecainide. He has been taking his Eliquis regularly without any missed doses. Patient states does have known mitral regurgitation following with Dr. Mckay as well as Dr. Art. Been described as moderate not requiring surgical intervention but there has been discussion about ablation. Patient has not had any prior surgeries no prior cardiac interventions such as ablations or cardiac stents. No tobacco, no recreational drugs. Had a glass of wine last night. Patient denies any other regular alcohol intake. Patient presents today with goal of being cardioverted. Related Data Previous Rx's Medication Instructions Recorded tamsulosin 0.4 mg capsule (Flomax) 0.4 mg PO DAILY #30 caps 06/23/20 flecainide 150 mg tablet 150 mg PO Q12H #60 tabs 01/08/24 Allergies Allergy/AdvReac Type Severity Reaction Status Date / Time bee venom protein (honey bee) Allergy Verified 04/10/22 11:35 Review of Systems Review of Systems ROS Unobtainable: All systems reviewed & are unremarkable except as noted in HPI and below Patient History Medical History (Updated 01/25/24 @ 12:20 by Sayra Ward DO) Acute urinary retention Atrial fibrillation Surgical History History of ankle surgery Social History Smoking Status: Never smoker Smoking Status: Never smoker alcohol intake frequency: 0-2 drinks per day Alcohol type: wine Substance Use Type: does not use Exam Narrative Exam Narrative: GENERAL: Alert and oriented x three, thin, well-appearing male in mild distress HEENT: Head normocephalic, atraumatic, EOMI, pupils reactive, face symmetric, moist mucous membranes NECK: Supple, full range of motion CARDIOVASCULAR: Irregularly irregular but not tachycardic and rhythm without murmurs, rubs or gallops. No JVD. No edema bilateral lower extremities. RESPIRATORY: Breath sounds equal bilaterally, no wheezes rales or rhonchi. No tachypnea or accessory muscle use. ABDOMEN: Soft, nontender. Normoactive bowel sounds all 4 quadrants. No guarding or rebound, rigidity, no mass : No CVA tenderness EXTREMITIES: Normal range of motion, no clubbing or edema. Neurovascularly intact NEUROLOGICAL: Cranial nerves II through XII grossly intact. Moving all extremities SKIN: Warm, dry, no petechiae, no rashes or lesions. Initial Vital Signs Initial Vital Signs: Vital Signs Pulse Rate 96 H 01/25/24 11:25 Blood Pressure 127/89 01/25/24 11:25 Pulse Oximetry 99 01/25/24 11:25 Procedures Cardioversion Consent Signed: Yes Indication: atrial fibrillation Stability: Stable Number of attempts (shocks): 1 Joules used: 200 Procedural Sedation Consent signed: Yes Time out performed: Yes Indication: cardioversion Presedation Evaluation: atrial fibrillation ASA Class: II Mallampati Airway Classification: Class II Time of Last PO Intake: 21:00 Preparation: monitor and storage bin tender applied, pulse oximeter, capnometry used, supplemental O2 applied, suction/airway equipment at bedside and IV secured IV Propofol dose (mg): 70 ED Sedation Level: Moderate (Concious) Patient Tolerated Procedure: Well and No complications Complications: none Course Orders Ordered: Discontinued Medications Sodium Chloride (Normal Saline 0.9%) 1,000 mls @ 1,000 mls/hr IV BOLUS ONE Stop: 01/25/24 12:47 Last Infusion: 01/25/24 13:39 Dose: Infused Documented By: Admin: 01/25/24 11:50 Dose: 1,000 mls/hr Documented By: MARGARITA Propofol (Propofol 200 Mg/20 Ml Vial) 70 mg IV NOW ONE Stop: 01/25/24 12:32 Last Admin: 01/25/24 12:45 Dose: 70 mg Documented By: MARGARITA Vital Signs Vital signs: Vital Signs - 8 hr 01/25/24 11:25 01/25/24 11:25 01/25/24 11:27 Temperature 97.7 F Pulse Rate 96 H 90 Respiratory Rate 16 Blood Pressure 127/89 127/89 Pulse Oximetry 99 99 Oxygen Delivery Method Room Air 01/25/24 11:30 01/25/24 11:30 01/25/24 11:52 Temperature Pulse Rate 83 Respiratory Rate 20 Blood Pressure 142/81 H 113/65 Pulse Oximetry 99 Oxygen Delivery Method 01/25/24 11:52 01/25/24 12:00 01/25/24 12:00 Temperature Pulse Rate 87 90 Respiratory Rate 18 Blood Pressure 123/68 Pulse Oximetry 98 98 Oxygen Delivery Method 01/25/24 12:15 01/25/24 12:15 01/25/24 12:35 Temperature Pulse Rate 78 84 Respiratory Rate 14 Blood Pressure 133/70 Pulse Oximetry 98 96 Oxygen Delivery Method 01/25/24 12:45 01/25/24 12:45 01/25/24 12:49 Temperature Pulse Rate 81 70 Respiratory Rate 17 16 Blood Pressure 159/74 H 146/76 H Pulse Oximetry 98 98 Oxygen Delivery Method 01/25/24 12:50 01/25/24 12:50 01/25/24 12:52 Temperature Pulse Rate 81 69 Respiratory Rate 18 17 Blood Pressure 141/69 H Pulse Oximetry 99 98 Oxygen Delivery Method 01/25/24 12:52 01/25/24 12:55 01/25/24 12:55 Temperature Pulse Rate 71 Respiratory Rate 22 Blood Pressure 146/76 H 145/70 H Pulse Oximetry 98 Oxygen Delivery Method 01/25/24 12:59 01/25/24 13:00 01/25/24 13:00 Temperature 97.6 F Pulse Rate 69 70 Respiratory Rate 16 14 Blood Pressure 132/65 132/65 Pulse Oximetry 98 98 Oxygen Delivery Method 01/25/24 13:03 01/25/24 13:03 01/25/24 13:05 Temperature Pulse Rate 68 68 Respiratory Rate 15 21 Blood Pressure 132/68 Pulse Oximetry 97 97 Oxygen Delivery Method 01/25/24 13:05 01/25/24 13:07 01/25/24 13:07 Temperature Pulse Rate 67 Respiratory Rate 22 Blood Pressure 129/67 134/69 Pulse Oximetry 98 Oxygen Delivery Method 01/25/24 13:09 01/25/24 13:10 01/25/24 13:10 Temperature Pulse Rate 67 69 66 Respiratory Rate 16 16 24 Blood Pressure 134/69 138/71 Pulse Oximetry 97 99 99 Oxygen Delivery Method 01/25/24 13:10 01/25/24 13:14 01/25/24 13:15 Temperature Pulse Rate 78 69 Respiratory Rate 16 13 Blood Pressure 138/71 Pulse Oximetry 99 Oxygen Delivery Method 01/25/24 13:15 01/25/24 13:16 01/25/24 13:19 Temperature Pulse Rate 70 67 Respiratory Rate 16 16 Blood Pressure 146/72 H 148/62 H 148/72 H Pulse Oximetry 99 99 Oxygen Delivery Method 01/25/24 13:20 01/25/24 13:20 01/25/24 13:25 Temperature Pulse Rate 68 71 Respiratory Rate 16 17 Blood Pressure 151/83 H Pulse Oximetry 99 Oxygen Delivery Method 01/25/24 13:25 01/25/24 13:30 01/25/24 13:30 Temperature Pulse Rate 71 Respiratory Rate 17 Blood Pressure 139/73 146/78 H Pulse Oximetry 96 Oxygen Delivery Method MDM - Arrhythmia/Palpitations Lab Data 01/25/24 11:30 01/25/24 11:30 Labs: Lab Results 01/25/24 Range/Units 11:30 WBC 7.1 (4.5-11.0) X10^3/uL RBC 5.70 (4.5-5.9) X10^6/uL Hgb 16.2 (13.5-17.5) g/dL Hct 48.6 (41-53) % MCV 85.3 (80-100) fL MCH 28.4 (26-34) PG MCHC 33.2 (30-36) % RDW 15.3 H (11.6-14.8) % Plt Count 245 (150-400) X10^3/uL Neut % (Auto) 67.1 (50-75) % Lymph % (Auto) 22.2 L (25-40) % Anson % (Auto) 8.4 (3-14) % Eos % (Auto) 1.7 L (2-4) % Baso % (Auto) 0.6 (0-2) % Neut # (Auto) 4800 (1234-8276) /uL Lymph # (Auto) 1600 (8184-1897) /uL Anson # (Auto) 600 (0-900) /uL Eos # (Auto) 100 (0-450) /uL Baso # (Auto) 0 (0-100) /uL PT 14.2 H (9.4-12.5) SECONDS INR 1.2 (0.9-1.3) APTT 44 H (25.1-36.5) SECONDS Sodium 137 (137-145) mmol/L Potassium 4.2 (3.4-5.1) mmol/L Chloride 104 (98-107) mmol/L Carbon Dioxide 25 (22-32) mmol/L BUN 12 (9-20) mg/dL Creatinine 0.76 (0.66-1.25) mg/dL Estimated GFR > 60 (>60) mL/min BUN/Creatinine Ratio 15.8 (6-22) Glucose 101 (80-110) mg/dL Calcium 9.1 (8.4-10.2) mg/dL Magnesium 2.3 (1.6-2.3) mg/dL Total Bilirubin 1.1 (0.2-1.3) mg/dL AST 29 (17-59) IU/L ALT 27 (<50) IU/L Alkaline Phosphatase 73 (38-126) U/L Total Creatine Kinase 87 (55-170) U/L Troponin I < 0.012 (0.01-0.034) ng/mL NT-Pro-B Natriuret Pep 631 H (<450) pg/mL Total Protein 7.4 (6.3-8.2) g/dL Albumin 4.4 (3.5-5.0) g/dL Globulin 3.0 (1.7-4.1) g/dL Albumin/Globulin Ratio 1.5 (1.0-2.8) Lipase 45 (23-300) U/L Imaging Data Chest x-ray: Radiologist's Impresson: Close Chest X-Ray (Signed) Fannie Zacarias - 01/25/24 Chest X-Ray (Signed) Amanuel Bean - 01/08/24 Echocardiogram Ultrasound (Signed) Te Art - 03/19/23 Chest X-Ray (Signed) Toma Johns - 04/10/22 Echocardiogram Ultrasound (Signed) Te Art - 02/26/22 Echocardiogram Ultrasound (Signed) Te Art - 01/06/21 Vascular Ultrasound (Signed) Tiburcio Summers - 09/30/20 Echocardiogram Ultrasound (Signed) Te Art - 11/09/19 Chest X-Ray (Signed) Mckay Pritchardangelito - 10/11/19 Lumbar Spine MRI (Signed) Amanuel Bean - 09/27/18 [facility] [address] [address] XRay Report Signed Patient: Marco Crews MR#: [id number] : 1945 Acct:[id number] Age/Sex: 78 / M Date of Service: 01/25/24 Loc: ED Accession Number: [id number] Procedure: XR chest 1V Ordering Provider: Sayra Ward D.O. PROCEDURE: XR CHEST 1V INDICATIONS: chest pain TECHNIQUE: One view of the chest was acquired. COMPARISON: [facility], , XR CHEST 1V, 01/08/2024, 14:52. FINDINGS: Surgical changes and devices: None. Lungs and pleura: Lungs are clear. No pleural effusions or pneumothorax. Mediastinum: Mediastinal contours appear normal. Heart size is normal. Bones and chest wall: No suspicious bony lesions. Overlying soft tissues appear unremarkable. IMPRESSION: No acute pulmonary process. Dictated by: Fannie Zacarias M.D. on 01/25/2024 at 11:48 Approved by: Fannie Zacarias M.D. on 01/25/2024 at 11:49 ECG Data Attestation: I personally reviewed and interpreted this ECG as follows: Prior ECG tracings: available for review Interpretation: Atrial fibrillation rate of 88 QRS of 104 QTC of 452. Patient does not have any acute ST elevation. Patient has prior from 01/08/2024. Patient is a little depression lateral lead no elevation. EKG2. Sinus rhythm rate of 67 MA 116 QRS of 100 QTC 464, no acute ST changes appreciated. MDM Narrative Medical decision making narrative: 78-year-old male comes in requesting cardioversion, patient has a history of atrial fibrillation is fully anticoagulated on Eliquis. He notes he is supposed to have an EGD and colonoscopy in [place] this upcoming week he is supposed to stop his Eliquis later today was hoping to be cardioverted back to normal with. Patient has recently had some anemia, did have a cardioversion 17 days ago and had his flecainide increased from 100-150 mg 17 days ago. CBC shows a white count of 7.1 hemoglobin is 16 platelets of 245. INR is 1.2 electrolytes are appropriate potassium is 4.2 creatinine 0.76, magnesium is 2.3, troponins negative at less than 0.12, BNP is 631. Chest x-ray is negative EKG shows AFib but rate controlled. Patient had an echo in March of 2023, EF of 50-60% without any focal wall motion abnormality appears slightly more dynamic compared to prior, mild left ventricular enlargement with end-diastolic volume 146 mL but likely similar to previous study diastolic function likely normal with probable normal filling pressures right ventricle mildly enlarged normal systolic function IVC is relatively small but with reduced inspiratory collapse severe biatrial enlargement both atria seeing measures significantly larger. Moderate thickening and redundancy of mitral valve leaflets borderline prolapse with probable moderate to perhaps moderate severe regurg with a central jet. Ascending aorta aortic arch remains borderline enlarged. Spoke with patient he wishes for cardioversion. Was cardioverted 17 days ago require 2 shocks with the up to 200 joules for successful cardioversion. Discussed risks versus benefits and patient would like to proceed. He has been following regularly with his cardiology team they have been following his mitral valve have had discussion about ablation but do not have plans for surgical intervention for mitral valve. Repeat EKG shows sinus rhythm. Dr. Louis cardiology for [facility]; recommends patient continue on his flecainide at current dose but does recommend to continue anticoagulation for the next month before having any elective procedures. This was relayed to the patient. Discharge Plan Departure Patient Disposition: Home Clinical Impression: Atrial fibrillation Activity Restrictions/Additional Instructions: Follow up with your cardiology team regarding possible ablation versus other procedures for your mitral valve. They do recommend that you continue with your Eliquis for the next 30 days before any elective procedures. Continue your flecainide 150 mg twice daily as well as your Eliquis. Please return for new or worsening symptoms recurrent atrial fibrillation, chest pain, shortness of breath, lightheadedness or passing out, new swelling of your extremities or other new or concerning changes. Prescriptions: No Action flecainide 150 mg tablet 150 mg PO Q12H Qty: 60 0RF tamsulosin [Flomax] 0.4 mg capsule 0.4 mg PO DAILY Qty: 30 0RF Referrals: Bhargav Webster MD [Primary Care Provider] - Jas Mckay MD [Physician] - Stand Alone Forms: Patient Portal/API
[2024-01-25] MEDS: SODIUM CHLORIDE 0.9% 1,000 ML 1000 ML IV (11:50)
[2024-01-25 11:52] LABS: INR 1.2 (0.9-1.3); Prothrombin Time 14.2 SECONDS (9.4-12.5)
[2024-01-25 11:55] LABS: PTT Partial Thromboplastin Tim 44 SECONDS (25.1-36.5)
[2024-01-25 12:01] LABS: Alanine Aminotransferase 27 IU/L (<50); Albumin 4.4 g/dL (3.5-5.0); Albumin Globulin Ratio 1.5 (1.0-2.8); Alkaline Phosphatase 73 U/L (38-126); Aspartate Aminotransferase 29 IU/L (17-59); BUN Creatinine Ratio 15.8 (6-22); Bilirubin Total 1.1 mg/dL (0.2-1.3); Blood Urea Nitrogen 12 mg/dL (9-20); Calcium 9.1 mg/dL (8.4-10.2); Carbon Dioxide 25 mmol/L (22-32); Chloride 104 mmol/L (98-107); Creatine Kinase 87 U/L (55-170); Estimated Glomerular Filt Rate > 60 mL/min (>60); Glucose 101 mg/dL (80-110); HEMOLYSIS 18 (0-50); Lipase 45 U/L (23-300); Magnesium 2.3 mg/dL (1.6-2.3); Potassium 4.2 mmol/L (3.4-5.1); Sodium 137 mmol/L (137-145); Total Protein 7.4 g/dL (6.3-8.2)
[2024-01-25 12:05] LABS: Add Manual Diff / Slide Review NO; Basophils Absolute Auto 0 /uL (0-100); Basophils Percent Auto 0.6 % (0-2); Eosinophils Absolute Auto 100 /uL (0-450); Eosinophils Percent Auto 1.7 % (2-4); Hematocrit 48.6 % (41-53); Hemoglobin 16.2 g/dL (13.5-17.5); Lymphocytes Absolute Auto 1600 /uL (1100-4500); Lymphocytes Percent Auto 22.2 % (25-40); Mean Corpuscular HGB Conc 33.2 % (30-36); Mean Corpuscular Hemoglobin 28.4 PG (26-34); Mean Corpuscular Volume 85.3 fL (80-100); Monocytes Absolute Auto 600 /uL (0-900); Monocytes Percent Auto 8.4 % (3-14); Neutrophils Absolute Auto 4800 /uL (1500-7000); Neutrophils Percent Auto 67.1 % (50-75); Platelet Count 245 X10^3/uL (150-400); Red Cell Distribution Width 15.3 % (11.6-14.8); White Blood Cell Count 7.1 X10^3/uL (4.5-11.0)
[2024-01-25 12:10] LABS: NT-proBNP (BNP-Adult 18+) 631 pg/mL (<450)
[2024-01-25 12:12] LABS: Troponin I < 0.012 ng/mL (0.01-0.034)
[2024-01-25] MEDS: propofoL 200 MG/20 ML VIAL 70 MG IV (12:45)
== END 2024-01-25 13:57 | disposition home or self-care (01) ==
PROVIDERS: Emergency Provider Emergency Medicine; Family Provider Family Medicine; PCP Family Medicine
DX: I48.91 Unspecified atrial fibrillation (principal); I34.0 Nonrheumatic mitral (valve) insufficiency; Z79.01 Long term (current) use of anticoagulants
CPT/HCPCS: 36415; 71045; 80053; 82550; 83690; 83735; 83880; 84484; 85025; 85610; 85730; 92960; 93005; 93010; 96360; 96361; 99152; 99285; J2704

== ENCOUNTER → 2024-03-02 09:13 | Outpatient (CLI) | payer MEDICARE, OTHER, SELFPAY ==
[2024-03-02 10:26] LABS: Add Manual Diff / Slide Review NO; Basophils Absolute Auto 0 /uL (0-100); Basophils Percent Auto 0.9 % (0-2); Eosinophils Absolute Auto 200 /uL (0-450); Hematocrit 45.7 % (41-53); Hemoglobin 15.2 g/dL (13.5-17.5); Lymphocytes Absolute Auto 1500 /uL (1100-4500); Lymphocytes Percent Auto 33.5 % (25-40); Mean Corpuscular HGB Conc 33.3 % (30-36); Mean Corpuscular Hemoglobin 28.7 PG (26-34); Mean Corpuscular Volume 86.3 fL (80-100); Monocytes Absolute Auto 400 /uL (0-900); Monocytes Percent Auto 9.7 % (3-14); Neutrophils Absolute Auto 2300 /uL (1500-7000); Neutrophils Percent Auto 50.9 % (50-75); Platelet Count 221 X10^3/uL (150-400); Red Blood Cell Count 5.29 X10^6/uL (4.5-5.9); Red Cell Distribution Width 14.3 % (11.6-14.8); White Blood Cell Count 4.6 X10^3/uL (4.5-11.0)
[2024-03-02 10:49] LABS: BUN Creatinine Ratio 15.4 (6-22); Blood Urea Nitrogen 12 mg/dL (9-20); Calcium 8.8 mg/dL (8.4-10.2); Carbon Dioxide 28 mmol/L (22-32); Chloride 104 mmol/L (98-107); Estimated Glomerular Filt Rate > 60 mL/min (>60); Glucose 91 mg/dL (80-110); HEMOLYSIS 34 (0-50); Potassium 4.4 mmol/L (3.4-5.1); Sodium 136 mmol/L (137-145)
== END ==
PROVIDERS: Family Provider Family Medicine; PCP Family Medicine; Referring Provider Nurse Practitioner Family; Visit Provider Nurse Practitioner Family
DX: I48.0 Paroxysmal atrial fibrillation (principal)
CPT/HCPCS: 36415; 80048; 85025

== ENCOUNTER 2024-03-22 14:16 | Emergency (ER) | payer MEDICARE, OTHER, SELFPAY ==
[2024-03-22] VITALS (9 sets, daily range): BP systolic 117–149; BP diastolic 68–81; PULSE 65–95; RESP 10–20; TEMP 36.9; O2SAT 97–99; BMI 20.1
--- NOTE | 2024-03-22 14:24 | DI.RAD.S_ITS ---
PROCEDURE: XR CHEST 1V INDICATIONS: chest pain TECHNIQUE: One view of the chest was acquired. COMPARISON: [facility], CT, CT ANGIO CHEST, 02/13/2024, 10:01. [facility], CR, XR CHEST 1V, 01/25/2024, 11:32. [facility], CR, XR CHEST 1V, 01/08/2024, 14:52. FINDINGS: Surgical changes and devices: None. Lungs and pleura: Lungs are clear. No pleural effusions or pneumothorax. Mediastinum: Mediastinal contours appear normal. Heart size is normal. Bones and chest wall: No suspicious bony lesions. Overlying soft tissues appear unremarkable. IMPRESSION: No acute cardiopulmonary abnormality is seen. Dictated by: Hayden Gonzalez M.D. on 03/22/2024 at 15:19 Approved by: Hayden Gonzalez M.D. on 03/22/2024 at 15:21
[2024-03-22 14:46] LABS: Add Manual Diff / Slide Review NO; Basophils Absolute Auto 100 /uL (0-100); Basophils Percent Auto 0.9 % (0-2); Eosinophils Absolute Auto 200 /uL (0-450); Eosinophils Percent Auto 1.9 % (2-4); Hematocrit 47.5 % (41-53); Hemoglobin 15.8 g/dL (13.5-17.5); Lymphocytes Absolute Auto 1600 /uL (1100-4500); Lymphocytes Percent Auto 19.2 % (25-40); Mean Corpuscular HGB Conc 33.2 % (30-36); Mean Corpuscular Hemoglobin 28.8 PG (26-34); Mean Corpuscular Volume 86.9 fL (80-100); Monocytes Absolute Auto 600 /uL (0-900); Monocytes Percent Auto 7.1 % (3-14); Neutrophils Absolute Auto 6000 /uL (1500-7000); Neutrophils Percent Auto 70.9 % (50-75); Platelet Count 230 X10^3/uL (150-400); Red Blood Cell Count 5.47 X10^6/uL (4.5-5.9); Red Cell Distribution Width 14.4 % (11.6-14.8); White Blood Cell Count 8.5 X10^3/uL (4.5-11.0)
[2024-03-22 14:53] LABS: INR 1.2 (0.9-1.3)
[2024-03-22 14:55] LABS: PTT Partial Thromboplastin Tim 41 SECONDS (25.1-36.5)
[2024-03-22 15:00] LABS: Alanine Aminotransferase 24 IU/L (<50); Albumin 4.2 g/dL (3.5-5.0); Albumin Globulin Ratio 1.8 (1.0-2.8); Alkaline Phosphatase 78 U/L (38-126); Aspartate Aminotransferase 24 IU/L (17-59); BUN Creatinine Ratio 13.6 (6-22); Bilirubin Total 0.9 mg/dL (0.2-1.3); Blood Urea Nitrogen 11 mg/dL (9-20); Calcium 8.9 mg/dL (8.4-10.2); Carbon Dioxide 25 mmol/L (22-32); Chloride 104 mmol/L (98-107); Creatine Kinase 106 U/L (55-170); Estimated Glomerular Filt Rate > 60 mL/min (>60); Globulin 2.4 g/dL (1.7-4.1); Glucose 93 mg/dL (80-110); HEMOLYSIS 18 (0-50); Lipase 37 U/L (23-300); Magnesium 2.1 mg/dL (1.6-2.3); Potassium 4.3 mmol/L (3.4-5.1); Sodium 135 mmol/L (137-145); Total Protein 6.6 g/dL (6.3-8.2)
[2024-03-22 15:11] LABS: Troponin I 0.022 ng/mL (0.01-0.034)
--- NOTE | 2024-03-22 15:32 | ED.ARRPALP ---
HPI - Arrhythmia/Palpitations General Chief Complaint: Arrhythmia/Palpitations Stated Complaint: AFIB, lightheaded Time Seen by Provider: 03/22/24 14:44 History of Present Illness HPI narrative: Patient 78 year old male history of atrial fibrillation on flecainide and Eliquis presenting today with atrial fibrillation. He has been cardioverted a number of times. He had increased number of cardioversions this spring and had an ablation done with Dr. Mckay 2 weeks ago. He is continued his Eliquis and has not stopped. He reports feeling tired and fatigued similar to when he has had atrial fibrillation episodes. No significant shortness of breath dizziness. Related Data Previous Rx's Medication Instructions Recorded tamsulosin 0.4 mg capsule (Flomax) 0.4 mg PO DAILY #30 caps 06/23/20 flecainide 150 mg tablet 150 mg PO Q12H #60 tabs 01/08/24 Allergies Allergy/AdvReac Type Severity Reaction Status Date / Time bee venom protein (honey bee) Allergy Verified 04/10/22 11:35 Patient History Medical History (Updated 03/22/24 @ 17:19 by Yun Huffman DO) Acute urinary retention Atrial fibrillation Surgical History History of ankle surgery Social History Smoking Status: Never smoker Smoking Status: Never smoker alcohol intake frequency: 0-2 drinks per day Alcohol type: wine Substance Use Type: does not use Exam Initial Vital Signs Initial Vital Signs: Vital Signs Temperature 98.5 F 03/22/24 14:18 Pulse Rate 92 H 03/22/24 14:18 Respiratory Rate 18 03/22/24 14:18 Blood Pressure 134/81 03/22/24 14:18 Pulse Oximetry 99 03/22/24 14:18 Oxygen Delivery Method Room Air 03/22/24 14:18 GENERAL: Alert pleasant 78-year-old male and in no acute distress. HEENT: Head atraumatic,EOMI, pupils reactive, face symmetric, moist mucous membranes CARDIOVASCULAR: Irregularly irregular RESPIRATORY: Breath sounds equal bilaterally, no wheezes rales or rhonchi. ABDOMEN: Soft, nontender. Normoactive bowel sounds all 4 quadrants. No guarding or rebound. EXTREMITIES: Normal range of motion, no clubbing or edema. Neurovascularly intact NEUROLOGICAL: Alert and oriented x4.Normal gait and speech. SKIN: Warm, dry, no laceration, no petechiae, no rashes or lesions. Procedures Cardioversion Consent Signed: Yes Indication: Atrial flutter symptomatic Stability: Stable Number of attempts (shocks): 1 Joules used: 120 Cardiac rhythm post-cardioversion: Normal sinus rhythm Procedural Sedation Consent signed: Yes Indication: cardioversion IV Propofol dose (mg): 50 Intraservice time/total sedation time (min): 12 ED Sedation Level: Moderate (Concious) Patient Tolerated Procedure: Well and No complications Complications: none Course Orders Ordered: ED Orders 03/22/24 14:24 XR chest 1V Stat EKG-12 Lead Stat 03/22/24 14:40 Complete Blood Count AUTO DIFF Stat Comprehensive Metabolic Panel Stat Lipase Stat Magnesium Stat PTT Partial Thromboplastin Amilcar Stat Prothrombin Time INR Stat Troponin & CK Cardiac Panel Stat 03/22/24 16:53 EKG-12 Lead Stat Discontinued Medications Aspirin (Aspirin 81 Mg Chew Tab) 324 mg PO NOW ONE Stop: 03/22/24 14:25 Last Admin: 03/22/24 14:53 Dose: Not Given Documented By: GRAZYNA Sodium Chloride (Normal Saline 0.9%) 1,000 mls @ 1,000 mls/hr IV BOLUS ONE Stop: 03/22/24 16:57 Last Infusion: 03/22/24 17:19 Dose: Infused Documented By: Admin: 03/22/24 16:17 Dose: 1,000 mls/hr Documented By: GRAZYNA Propofol (Propofol 200 Mg/20 Ml Vial) 75 mg 1 mg/kg (75 mg) IV NOW ONE Stop: 03/22/24 15:59 Last Admin: 03/22/24 16:17 Dose: 75 mg Documented By: GRAZYNA Vital Signs Vital signs: Vital Signs - 8 hr 03/22/24 14:18 03/22/24 14:46 03/22/24 15:00 Temperature 98.5 F Pulse Rate 92 H 95 H 92 H Respiratory Rate 18 16 Blood Pressure 134/81 149/70 H 118/75 Pulse Oximetry 99 97 98 Oxygen Delivery Method Room Air Room Air Room Air 03/22/24 15:30 03/22/24 16:19 03/22/24 16:20 Temperature Pulse Rate 91 H 66 94 H Respiratory Rate 13 18 Blood Pressure 117/68 141/74 H Pulse Oximetry 98 97 Oxygen Delivery Method Room Air 03/22/24 16:31 03/22/24 16:42 03/22/24 17:28 Temperature Pulse Rate 65 66 67 Respiratory Rate 17 10 L 20 Blood Pressure 131/70 140/76 142/74 H Pulse Oximetry 97 98 97 Oxygen Delivery Method Room Air Room Air Room Air MDM - Arrhythmia/Palpitations Lab Data 03/22/24 14:40 03/22/24 14:40 Labs: Lab Results 03/22/24 Range/Units 14:40 WBC 8.5 (4.5-11.0) X10^3/uL RBC 5.47 (4.5-5.9) X10^6/uL Hgb 15.8 (13.5-17.5) g/dL Hct 47.5 (41-53) % MCV 86.9 (80-100) fL MCH 28.8 (26-34) PG MCHC 33.2 (30-36) % RDW 14.4 (11.6-14.8) % Plt Count 230 (150-400) X10^3/uL Neut % (Auto) 70.9 (50-75) % Lymph % (Auto) 19.2 L (25-40) % Jefferson % (Auto) 7.1 (3-14) % Eos % (Auto) 1.9 L (2-4) % Baso % (Auto) 0.9 (0-2) % Neut # (Auto) 6000 (3781-6703) /uL Lymph # (Auto) 1600 (8949-7190) /uL Jefferson # (Auto) 600 (0-900) /uL Eos # (Auto) 200 (0-450) /uL Baso # (Auto) 100 (0-100) /uL PT 14.0 H (9.4-12.5) SECONDS INR 1.2 (0.9-1.3) APTT 41 H (25.1-36.5) SECONDS Sodium 135 L (137-145) mmol/L Potassium 4.3 (3.4-5.1) mmol/L Chloride 104 (98-107) mmol/L Carbon Dioxide 25 (22-32) mmol/L BUN 11 (9-20) mg/dL Creatinine 0.81 (0.66-1.25) mg/dL Estimated GFR > 60 (>60) mL/min BUN/Creatinine Ratio 13.6 (6-22) Glucose 93 (80-110) mg/dL Calcium 8.9 (8.4-10.2) mg/dL Magnesium 2.1 (1.6-2.3) mg/dL Total Bilirubin 0.9 (0.2-1.3) mg/dL AST 24 (17-59) IU/L ALT 24 (<50) IU/L Alkaline Phosphatase 78 (38-126) U/L Total Creatine Kinase 106 (55-170) U/L Troponin I 0.022 (0.01-0.034) ng/mL Total Protein 6.6 (6.3-8.2) g/dL Albumin 4.2 (3.5-5.0) g/dL Globulin 2.4 (1.7-4.1) g/dL Albumin/Globulin Ratio 1.8 (1.0-2.8) Lipase 37 (23-300) U/L Imaging Data Chest x-ray: Radiologist's Impresson: PROCEDURE: XR CHEST 1V INDICATIONS: chest pain TECHNIQUE: One view of the chest was acquired. COMPARISON: [facility], CT, CT ANGIO CHEST, 02/13/2024, 10:01. [facility], CR, XR CHEST 1V, 01/25/2024, 11:32. [facility], CR, XR CHEST 1V, 01/08/2024, 14:52. FINDINGS: Surgical changes and devices: None. Lungs and pleura: Lungs are clear. No pleural effusions or pneumothorax. Mediastinum: Mediastinal contours appear normal. Heart size is normal. Bones and chest wall: No suspicious bony lesions. Overlying soft tissues appear unremarkable. IMPRESSION: No acute cardiopulmonary abnormality is seen. Dictated by: Hayden Gonzalez M.D. on 03/22/2024 at 15:19 ECG Data Interpretation: Atrial flutter rate [address] changes similar to previous EKGs Normal sinus rhythm rate 68 AR interval 246 QRS 96 QTC 431 no ischemic changes MDM Narrative Medical decision making narrative: Patient 78-year-old male presents today with symptomatic atrial flutter. He has not in RVR but it has been having symptoms for 24 hours. There is no contraindication to cardioversion he has been on Eliquis the whole time. Blood work has been reviewed without any clinical significant abnormalities Chest x-ray has been reviewed no acute cardiopulmonary process EKGs shows atrial flutter with repeat normal sinus rhythm after cardioversion Patient was easily cardioverted without any sort of complications with 50 mg of propofol. He is feeling significantly better. He understands he needs to follow-up with cardiology and Dr. Mckay in regards to his medications. He is already maxed out on flecainide at 150 mg Discharge Plan Departure Patient Disposition: Home Clinical Impression: Atrial flutter Instructions: DI for Atrial Flutter Activity Restrictions/Additional Instructions: *You have been diagnosed with atrial flutter *What to do: At this time you must call and follow-up with Dr. Mckay and Cardiology *Continue to take medications as directed Please continue Eliquis *Follow up with your primary care provider in 2-3 days or call [phone] *Return to ER if you should have increasing chest pain palpitations or any new, worsening or concerning symptoms Prescriptions: No Action flecainide 150 mg tablet 150 mg PO Q12H Qty: 60 0RF tamsulosin [Flomax] 0.4 mg capsule 0.4 mg PO DAILY Qty: 30 0RF Referrals: Bhargav Webster MD [Primary Care Provider] - Stand Alone Forms: Patient Portal/API
[2024-03-22] MEDS: SODIUM CHLORIDE 0.9% 1,000 ML 1000 ML IV (16:17)
[2024-03-22] MEDS: propofoL 200 MG/20 ML VIAL 75 MG IV (16:17)
--- NOTE | 2024-03-22 16:41 | RT ---
at bedside for Cardioversion, pt ludy well. no distress noted. MD at bedside, bag mask unit and suction on and functional. Released by RN, pt alert with at bedside.
== END 2024-03-22 17:30 | disposition home or self-care (01) ==
PROVIDERS: Emergency Provider Emergency Medicine; Family Provider Family Medicine; PCP Family Medicine
DX: I48.92 Unspecified atrial flutter (principal); R07.9 Chest pain, unspecified; Z79.01 Long term (current) use of anticoagulants
CPT/HCPCS: 36415; 71045; 80053; 82550; 83690; 83735; 84484; 85025; 85610; 85730; 92960; 93005; 93010; 96360; 99152; 99285; J2704

== ENCOUNTER 2024-04-10 14:57 | Emergency (ER) | payer OTHER, MEDICARE, SELFPAY ==
[2024-04-10] VITALS (18 sets, daily range): BP systolic 131–178; BP diastolic 75–86; PULSE 61–90; RESP 9–35; TEMP 36.4–36.6; O2SAT 91–99; BMI 20.1
--- NOTE | 2024-04-10 15:07 | EKG_ITS ---
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
--- NOTE | 2024-04-10 15:07 | DI.RAD.S_ITS ---
PROCEDURE: XR CHEST 1V INDICATIONS: chest pain TECHNIQUE: One view of the chest was acquired. COMPARISON: [facility], CR, XR CHEST 1V, 03/22/2024, 14:25. [facility], CR, XR CHEST 1V, 01/25/2024, 11:32. FINDINGS: Surgical changes and devices: None. Lungs and pleura: Lungs are clear. No pleural effusions or pneumothorax. Mediastinum: Mediastinal contours appear normal. Heart size is normal. Bones and chest wall: No suspicious bony lesions. Overlying soft tissues appear unremarkable. IMPRESSION: No acute cardiopulmonary abnormality is seen. Dictated by: Klye Pantoja M.D. on 04/10/2024 at 15:48 Approved by: Kyle Pantoja M.D. on 04/10/2024 at 15:48
[2024-04-10 15:35] LABS: Add Manual Diff / Slide Review NO; Basophils Absolute Auto 100 /uL (0-100); Basophils Percent Auto 0.7 % (0-2); Eosinophils Absolute Auto 100 /uL (0-450); Eosinophils Percent Auto 1.4 % (2-4); Hemoglobin 16.5 g/dL (13.5-17.5); Lymphocytes Absolute Auto 1700 /uL (1100-4500); Lymphocytes Percent Auto 20.8 % (25-40); Mean Corpuscular HGB Conc 33.6 % (30-36); Mean Corpuscular Volume 86.3 fL (80-100); Monocytes Absolute Auto 600 /uL (0-900); Neutrophils Absolute Auto 5600 /uL (1500-7000); Neutrophils Percent Auto 69.1 % (50-75); Platelet Count 233 X10^3/uL (150-400); Red Blood Cell Count 5.68 X10^6/uL (4.5-5.9); Red Cell Distribution Width 14.2 % (11.6-14.8); White Blood Cell Count 8.1 X10^3/uL (4.5-11.0)
[2024-04-10 15:43] LABS: INR 1.2 (0.9-1.3); Prothrombin Time 13.7 SECONDS (9.4-12.5)
--- NOTE | 2024-04-10 15:44 | ED.ARRPALP ---
HPI - Arrhythmia/Palpitations General Chief Complaint: Arrhythmia/Palpitations Stated Complaint: went into hr fibrilation Time Seen by Provider: 04/10/24 15:32 Source: patient Mode of arrival: Family Vehicle History of Present Illness HPI narrative: Patient is a 78-year-old male. History of paroxysmal AFib. It was on flecainide. He was also on Eliquis. Has been taking his medications as directed. Has had an ablation. Has had 1 prior episode of AFib since the ablation. States that this morning he got up about 0400 hours in the morning in order to use the restroom when he started to feel like his heart was beating fast. Somewhat lightheaded. No shortness of breath. He waited to see if his symptoms improve on their own which they did not so he came to the emergency department for evaluation. Related Data Previous Rx's Medication Instructions Recorded tamsulosin 0.4 mg capsule (Flomax) 0.4 mg PO DAILY #30 caps 06/23/20 flecainide 150 mg tablet 150 mg PO Q12H #60 tabs 01/08/24 Allergies Allergy/AdvReac Type Severity Reaction Status Date / Time bee venom protein (honey bee) Allergy Verified 04/10/24 15:14 Review of Systems Review of Systems ROS Unobtainable: All systems reviewed & are unremarkable except as noted in HPI and below Patient History Medical History Acute urinary retention Atrial fibrillation Surgical History History of ankle surgery Social History Smoking Status: Never smoker Smoking Status: Never smoker alcohol intake frequency: 0-2 drinks per day Alcohol type: wine Substance Use Type: does not use Exam Initial Vital Signs Initial Vital Signs: Vital Signs Temperature 97.9 F 04/10/24 15:06 Pulse Rate 84 04/10/24 15:06 Respiratory Rate 16 04/10/24 15:06 Blood Pressure 178/77 H 04/10/24 15:06 Pulse Oximetry 98 04/10/24 15:06 Oxygen Delivery Method Room Air 04/10/24 15:06 Const General: cooperative, comfortable and No ill appearing HENPA Head: normal to inspection and normocephalic Resp Effort & Inspection: normal respiratory effort Auscultation: clear to auscultation bilaterally Cardio Rate: regular rate Rhythm: abnormal rhythm GI Inspection: normal to inspection Skin General: no rashes or lesions noted Neuro General: patient alert, patient awake and moves all extremities Procedures Cardioversion Consent Signed: Yes Indication: Atrial fib Stability: Stable Number of attempts (shocks): 1 Joules used: 150 Cardiac rhythm post-cardioversion: Sinus rhythm Procedural Sedation Consent signed: Yes Indication: cardioversion ASA Class: II Preparation: furnace puncher applied, pulse oximeter, capnometry used, supplemental O2 applied, suction/airway equipment at bedside and IV secured Fentanyl: IV Fentanyl dose (mcg): 12 IV Propofol dose (mg): 80 Intraservice time/total sedation time (min): 15 ED Sedation Level: Moderate (Concious) Patient Tolerated Procedure: Well and No complications Course Orders Ordered: ED Orders 04/10/24 15:07 XR chest 1V Stat EKG-12 Lead Stat 04/10/24 15:20 Complete Blood Count AUTO DIFF Stat Comprehensive Metabolic Panel Stat Lipase Stat Magnesium Stat NT-proBNP (BNP-Adult 18+) Stat PTT Partial Thromboplastin Amilcar Stat Prothrombin Time INR Stat Troponin & CK Cardiac Panel Stat 04/10/24 16:39 EKG-12 Lead Stat Discontinued Medications Aspirin (Aspirin 81 Mg Chew Tab) 324 mg PO NOW ONE Stop: 04/10/24 15:07 Last Admin: 04/10/24 17:11 Dose: Not Given Documented By: LAURA Fentanyl (Fentanyl 100 Mcg/2 Ml Inj) 12.5 mcg IV NOW ONE Stop: 04/10/24 15:45 Last Admin: 04/10/24 16:29 Dose: 12.5 mcg Documented By: LAURA Sodium Chloride (Normal Saline 0.9%) 1,000 mls @ 125 mls/hr IV CONT VENUS Last Infusion: 04/10/24 17:22 Dose: Infused Documented By: Admin: 04/10/24 16:30 Dose: 125 mls/hr Documented By: LAURA Propofol (Propofol 200 Mg/20 Ml Vial) 100 mg IV NOW ONE Stop: 04/10/24 15:45 Last Admin: 04/10/24 16:29 Dose: 80 mg Documented By: LAURA Vital Signs Vital signs: Vital Signs - 8 hr 04/10/24 15:06 04/10/24 15:27 04/10/24 15:30 Temperature 97.9 F Pulse Rate 84 71 69 Respiratory Rate 16 18 Blood Pressure 178/77 H Pulse Oximetry 98 92 99 Oxygen Delivery Method Room Air 04/10/24 15:30 04/10/24 16:00 04/10/24 16:30 Temperature Pulse Rate 90 70 Respiratory Rate 14 35 H Blood Pressure 141/83 H 141/83 H Pulse Oximetry 91 98 Oxygen Delivery Method 04/10/24 16:33 04/10/24 16:42 04/10/24 16:47 Temperature Pulse Rate 68 72 77 Respiratory Rate 18 19 18 Blood Pressure 141/83 H 141/83 H 131/75 Pulse Oximetry 98 98 98 Oxygen Delivery Method 04/10/24 16:49 04/10/24 16:49 04/10/24 16:50 Temperature Pulse Rate 64 Respiratory Rate Blood Pressure 138/81 131/75 Pulse Oximetry 93 Oxygen Delivery Method 04/10/24 16:50 04/10/24 16:52 04/10/24 16:55 Temperature Pulse Rate 63 63 Respiratory Rate 16 Blood Pressure 131/75 142/76 H Pulse Oximetry 93 95 Oxygen Delivery Method 04/10/24 16:55 04/10/24 16:57 04/10/24 17:00 Temperature Pulse Rate 62 61 Respiratory Rate 12 16 Blood Pressure 142/76 H 150/82 H Pulse Oximetry 94 94 Oxygen Delivery Method 04/10/24 17:00 04/10/24 17:02 04/10/24 17:05 Temperature Pulse Rate 62 63 Respiratory Rate 9 L 16 Blood Pressure 142/79 H 142/79 H Pulse Oximetry 94 98 Oxygen Delivery Method 04/10/24 17:05 04/10/24 17:10 04/10/24 17:10 Temperature Pulse Rate 63 65 Respiratory Rate 18 Blood Pressure 157/86 H Pulse Oximetry 98 98 Oxygen Delivery Method 04/10/24 17:21 Temperature 97.6 F Pulse Rate Respiratory Rate Blood Pressure Pulse Oximetry Oxygen Delivery Method MDM - Arrhythmia/Palpitations Lab Data Attestation: I reviewed the patient's lab results. 04/10/24 15:20 04/10/24 15:20 Labs: Lab Results 04/10/24 Range/Units 15:20 WBC 8.1 (4.5-11.0) X10^3/uL RBC 5.68 (4.5-5.9) X10^6/uL Hgb 16.5 (13.5-17.5) g/dL Hct 49.0 (41-53) % MCV 86.3 (80-100) fL MCH 29.0 (26-34) PG MCHC 33.6 (30-36) % RDW 14.2 (11.6-14.8) % Plt Count 233 (150-400) X10^3/uL Neut % (Auto) 69.1 (50-75) % Lymph % (Auto) 20.8 L (25-40) % [place] % (Auto) 8.0 (3-14) % Eos % (Auto) 1.4 L (2-4) % Baso % (Auto) 0.7 (0-2) % Neut # (Auto) 5600 (1221-9875) /uL Lymph # (Auto) 1700 (7909-4883) /uL [place] # (Auto) 600 (0-900) /uL Eos # (Auto) 100 (0-450) /uL Baso # (Auto) 100 (0-100) /uL PT 13.7 H (9.4-12.5) SECONDS INR 1.2 (0.9-1.3) APTT 39 H (25.1-36.5) SECONDS Sodium 133 L (137-145) mmol/L Potassium 4.2 (3.4-5.1) mmol/L Chloride 103 (98-107) mmol/L Carbon Dioxide 27 (22-32) mmol/L BUN 11 (9-20) mg/dL Creatinine 0.77 (0.66-1.25) mg/dL Estimated GFR > 60 (>60) mL/min BUN/Creatinine Ratio 14.3 (6-22) Glucose 92 (80-110) mg/dL Calcium 9.0 (8.4-10.2) mg/dL Magnesium 2.2 (1.6-2.3) mg/dL Total Bilirubin 1.0 (0.2-1.3) mg/dL AST 23 (17-59) IU/L ALT 26 (<50) IU/L Alkaline Phosphatase 70 (38-126) U/L Total Creatine Kinase 93 (55-170) U/L Troponin I < 0.012 (0.01-0.034) ng/mL NT-Pro-B Natriuret Pep 1700 H (<450) pg/mL Total Protein 7.4 (6.3-8.2) g/dL Albumin 4.5 (3.5-5.0) g/dL Globulin 2.9 (1.7-4.1) g/dL Albumin/Globulin Ratio 1.6 (1.0-2.8) Lipase 35 (23-300) U/L Imaging Data Chest x-ray: Radiologist's Impresson: PROCEDURE: XR CHEST 1V INDICATIONS: chest pain TECHNIQUE: One view of the chest was acquired. COMPARISON: [facility], CR, XR CHEST 1V, 03/22/2024, 14:25. [facility], CR, XR CHEST 1V, 01/25/2024, 11:32. FINDINGS: Surgical changes and devices: None. Lungs and pleura: Lungs are clear. No pleural effusions or pneumothorax. Mediastinum: Mediastinal contours appear normal. Heart size is normal. Bones and chest wall: No suspicious bony lesions. Overlying soft tissues appear unremarkable. IMPRESSION: No acute cardiopulmonary abnormality is seen. ECG Data Attestation: I personally reviewed and interpreted this ECG as follows: Interpretation: Atrial flutter Ventricular rate is [address] T wave changes Post cardioversion EKG Sinus rhythm Ventricular rate is 62 First-degree AV block MA interval 264 milliseconds Normal axis No ST T wave changes MDM Narrative Medical decision making narrative: Patient was successfully cardioverted here in the emergency department. Went into atrial fibrillation approximately 12 hours ago. He was on anticoagulation. Tolerated the procedure well. Sinus rhythm afterwards. Discharge patient home to continue his current medications. He was given return precautions. He expressed understanding and agreement. Discharge Plan Departure Patient Disposition: Home Clinical Impression: Atrial fibrillation Instructions: DI for Atrial Fibrillation Activity Restrictions/Additional Instructions: Continue to take all of your medications as directed. Contact your primary doctor for follow-up. Return to the emergency department for new or worsening symptoms. Prescriptions: No Action flecainide 150 mg tablet 150 mg PO Q12H Qty: 60 0RF tamsulosin [Flomax] 0.4 mg capsule 0.4 mg PO DAILY Qty: 30 0RF Referrals: Bhargav Webster MD [Primary Care Provider] - Stand Alone Forms: Patient Portal/API
[2024-04-10 15:46] LABS: PTT Partial Thromboplastin Tim 39 SECONDS (25.1-36.5)
[2024-04-10 15:49] LABS: Alanine Aminotransferase 26 IU/L (<50); Albumin 4.5 g/dL (3.5-5.0); Albumin Globulin Ratio 1.6 (1.0-2.8); Alkaline Phosphatase 70 U/L (38-126); Aspartate Aminotransferase 23 IU/L (17-59); BUN Creatinine Ratio 14.3 (6-22); Blood Urea Nitrogen 11 mg/dL (9-20); Carbon Dioxide 27 mmol/L (22-32); Chloride 103 mmol/L (98-107); Creatine Kinase 93 U/L (55-170); Estimated Glomerular Filt Rate > 60 mL/min (>60); Globulin 2.9 g/dL (1.7-4.1); Glucose 92 mg/dL (80-110); HEMOLYSIS 16 (0-50); Lipase 35 U/L (23-300); Magnesium 2.2 mg/dL (1.6-2.3); Potassium 4.2 mmol/L (3.4-5.1); Sodium 133 mmol/L (137-145); Total Protein 7.4 g/dL (6.3-8.2)
[2024-04-10 16:00] LABS: NT-proBNP (BNP-Adult 18+) 1700 pg/mL (<450); Troponin I < 0.012 ng/mL (0.01-0.034)
[2024-04-10] MEDS: propofoL 200 MG/20 ML VIAL 100 MG IV (16:29)
[2024-04-10] MEDS: fentaNYL 100 MCG/2 ML INJ 12.5 MCG IV (16:29)
[2024-04-10] MEDS: SODIUM CHLORIDE 0.9% 1,000 ML 125 ML IV (16:30)
--- NOTE | 2024-04-10 16:42 | EKG_ITS ---
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
== END 2024-04-10 17:22 | disposition home or self-care (01) ==
PROVIDERS: Emergency Provider Emergency Medicine; Family Provider Family Medicine; PCP Family Medicine
DX: I48.91 Unspecified atrial fibrillation (principal); R07.9 Chest pain, unspecified; Z79.01 Long term (current) use of anticoagulants
CPT/HCPCS: 71045; 80053; 82550; 83690; 83735; 83880; 84484; 85025; 85610; 85730; 92960; 93005; 96360; 99152; 99284; 99285; J2704; J3010

== ENCOUNTER → 2024-05-12 08:06 | Outpatient (CLI) | payer MEDICARE, OTHER, SELFPAY ==
--- NOTE | 2024-05-12 08:08 | DI.ECHO.S_ITS ---
[place] +---------+ Hospital : : [address] : : [place] : : [id number] : : Phone: [phone] Echocardiogram Report + + :Name: EVER HOANG Study Date: 05/12/2024 Height: 77 in : :[facility] ReadingLocation: Weight: 175 lb : : Gender: Male BSA: 2.1 m2 : :: 1945 Age: 78 yrs BP: 157/88 mmHg: :Reason For Study: MITRAL VALVE INSUFFICIENCY : :Ordering Physician: ALYCE, : :JUVENCIO Performed By: Lois Ortiz : :Referring: JUVENCIO MEAD : + + Interpretation Summary The left ventricle is mildly enlarged but unchanged with an end-diastolic volume of 141 mL compared to 146 mL previously, with systolic function at the lower limits of normal with an EF of 50 to 55% and appears slightly less dynamic compared to the previous study. There are no focal wall motion abnormalities and diastolic function is likely normal with probable normal filling pressures and are unchanged. The right ventricle is mildly enlarged with borderline hypokinesis and appears slightly larger and slightly less dynamic compared to the previous study. Right ventricular systolic pressure cannot be accurately assessed but CVP is likely 3 mmHg. There is severe biatrial enlargement that is grossly unchanged from the previous study. The mitral valve leaflets are moderately thickened with mild prolapse of the posterior leaflet with an eccentric, laterally directed regurgitant jet makes quantitation challenging but there is likely at least moderate to severe mitral regurgitation and appears slightly more prominent compared to the previous study. There is mild tricuspid regurgitation that is likely unchanged. The ascending aorta and aortic arch are borderline enlarged but unchanged. Procedure: A two-dimensional transthoracic echocardiogram with color flow and Doppler was performed. The study quality was technically adequate. There is no prior echocardiogram noted for this patient. The patient was in sinus bradycardia with heart rates between 56-61 bpm during the exam. This is slightly slower compared to the previous study. Left Ventricle: The left ventricle is mildly dilated. This is unchanged compared to the previous study. The estimated left ventricular end diastolic volume is 141 mL compared to the previous 146 ml. There is normal left ventricular wall thickness. Left ventricular systolic function is low normal. The ejection fraction is estimated to be 50-55%. There are no focal wall motion abnormalities. This is Slightly less dynamic compared to the previous study. Diastolic parameters suggest probable normal left ventricular diastolic function and normal filling pressures. This is unchanged compared to the previous study. Right Ventricle: The right ventricle is mildly dilated. Right ventricular systolic function is at the lower limits of normal. This is slightly larger and slightly less dynamic compared to the previous study. Atria: There is severe biatrial enlargement. This is unchanged compared to the previous study. There is no Doppler evidence for an interatrial shunt. Mitral Valve: The mitral valve leaflets appear moderately thickened, but open well. There is a flat closure plane of the the mitral valve leaflets. There is mild mitral valve prolapse. There is prolapse of the posterior mitral valve leaflet(s). There is moderate to severe mitral regurgitation. There is an eccentric jet of mitral regurgitation that is directed laterally. This is slightly more prominent compared to the previous study. Aortic Valve: The aortic valve is trileaflet. The aortic valve is mildly calcified. The aortic valve opens well. There is no aortic valve stenosis. There is trace aortic regurgitation. Tricuspid Valve: The tricuspid valve is normal in structure and function. There is mild tricuspid regurgitation. This is likely unchanged compared to the previous study. Pulmonary artery pressures cannot be estimated because of the lack of a measurable TR jet velocity but the IVC suggests a CVP of around 3 mmHg. Pulmonic Valve: The pulmonic valve leaflets are thin and pliable; valve motion is normal. There is trace pulmonic regurgitation. Great Vessels: The aortic root is normal size. The ascending aorta is at the upper limits of normal in size. The aortic arch is at the upper limits of normal in size. This is unchanged compared to the previous study. The IVC is of normal diameter and collapses greater than 50% with a sniff. This suggests a low right atrial pressure of 3 mm Hg. Pericardium/ Pleura There is no pericardial effusion. There is no pleural effusion. MMode/2D Measurements & Calculations LVIDd: 6.2 cm LVOT diam: 2.1 cm LVIDs: 3.9 cm Ao root diam: 3.6 cm FS: 36.3 % asc Aorta Diam: 3.5 cm IVSd: 0.97 cm Ao Arch Diam (Prox Trans): 2.9 cm LVPWd: 0.88 cm LV pierce. diameter/BSA (cm/m^2): 2.9 LV sys. diameter/BSA (cm/m^2): 1.9 LA A2 area: 37.5 cm2 RA long axis: 6.2 cm LA A4 area: 32.9 cm2 RA area: 27.9 cm2 LA length (vol): 7.1 cm RA vol: 106.5 ml LA vol: 148.1 ml RA : 50.4 ml/m2 LA vol index: 70.1 ml/m2 IVC diam: 1.3 cm RVD1 (basal): 4.6 cm RVD2 (mid): 2.8 cm TAPSE: 1.9 cm Doppler Measurements & Calculations Ao V2 max: 150.6 cm/sec LVOT Max Flo: 67.5 cm/sec Ao V2 mean: 101.3 cm/sec LV V1 max P.8 mmHg Ao max P.1 mmHg LV V1 VTI: 15.1 cm Ao mean P.7 mmHg PORTIA(I,D): 1.8 cm2 Ao V2 VTI: 28.2 cm PORTIA(V,D): 1.5 cm2 sev ratio: 0.54 PORTIA indexed to BSA (cm^2/m^2): 0.85 MV E max flo: 77.8 cm/sec TR max flo: 232.7 cm/sec MV A max flo: 48.2 cm/sec TR max P.7 mmHg MV E/A: 1.6 PA V2 max: 98.7 cm/sec Med Peak E' Flo: 9.7 cm/sec PA V2 mean: 70.6 cm/sec E/E' med: 8.0 PA mean P.2 mmHg Lat Peak E' Flo: 9.6 cm/sec PA pr(Accel): 13.9 mmHg E/E' lat: 8.1 E/e' average: 8.1 MV dec time: 0.27 sec MR ERO: 0.25 cm2 MR PISA: 2.8 cm2 SV(LVOT): 50.6 ml MR flow rate: 145.8 cm3/sec MR PISA radius: 0.66 cm Reading Physician:03:19 PM
== END ==
LOC: ECHO 08:07
PROVIDERS: Family Provider Family Medicine; PCP Family Medicine; Referring Provider Specialist; Visit Provider Specialist
DX: I08.1 Rheumatic disorders of both mitral and tricuspid valves (principal)
CPT/HCPCS: 93306

== ENCOUNTER → 2024-10-16 09:12 | Outpatient (CLI) | payer MEDICARE, OTHER, SELFPAY ==
[2024-10-16 10:00] LABS: Hematocrit 46.8 % (41-53); Hemoglobin 15.4 g/dL (13.5-17.5); Mean Corpuscular HGB Conc 32.8 % (30-36); Mean Corpuscular Hemoglobin 28.4 PG (26-34); Mean Corpuscular Volume 86.8 fL (80-100); Platelet Count 280 X10^3/uL (150-400); Red Cell Distribution Width 14.5 % (11.6-14.8); White Blood Cell Count 5.8 X10^3/uL (4.5-11.0)
[2024-10-16 10:10] LABS: HEMOLYSIS < 15 (0-50); Iron 56 ug/dL (49-181)
[2024-10-16 10:14] LABS: Alanine Aminotransferase 31 IU/L (<50); Albumin 4.2 g/dL (3.5-5.0); Albumin Globulin Ratio 1.7 (1.0-2.8); Alkaline Phosphatase 83 U/L (38-126); Aspartate Aminotransferase 30 IU/L (17-59); BUN Creatinine Ratio 12.3 (6-22); Bilirubin Total 0.9 mg/dL (0.2-1.3); Blood Urea Nitrogen 10 mg/dL (9-20); Calcium 9.3 mg/dL (8.4-10.2); Carbon Dioxide 27 mmol/L (22-32); Chloride 102 mmol/L (98-107); Estimated Glomerular Filt Rate > 60 mL/min (>60); Globulin 2.5 g/dL (1.7-4.1); Glucose 92 mg/dL (80-110); HEMOLYSIS < 15 (0-50); Magnesium 2.1 mg/dL (1.6-2.3); Potassium 4.3 mmol/L (3.4-5.1); Sodium 135 mmol/L (137-145); Total Protein 6.7 g/dL (6.3-8.2)
[2024-10-16 10:23] LABS: Percent Iron Saturation 21 % (20-50); Total Iron Binding Capacity 272 ug/dL (261-462); Transferrin 240 mg/dL (206-381)
[2024-10-16 10:45] LABS: Ferritin 84 ng/mL (18-464)
[2024-10-16 10:59] LABS: Vitamin B12 > 1000 pg/mL (239-931)
== END ==
PROVIDERS: Family Provider Family Medicine; PCP Family Medicine; Referring Provider Specialist; Visit Provider Specialist
DX: E53.8 Deficiency of other specified B group vitamins (principal); I48.0 Paroxysmal atrial fibrillation; E61.1 Iron deficiency
CPT/HCPCS: 36415; 80053; 82607; 82728; 83540; 83550; 83735; 85027

== ENCOUNTER 2025-09-24 09:55 | Emergency (ER) | payer MEDICARE, OTHER, SELFPAY ==
[2025-09-24] VITALS (22 sets, daily range): BP systolic 117–171; BP diastolic 70–94; PULSE 58–91; RESP 15–26; TEMP 36.5–36.8; O2SAT 96–99; BMI 20.7
--- NOTE | 2025-09-24 10:11 | DI.RAD.S_ITS ---
PROCEDURE: XR CHEST 1V INDICATIONS: Chest Pain TECHNIQUE: One view of the chest was acquired. COMPARISON: [facility], CR, XR CHEST 1V, 04/10/2024, 15:14. FINDINGS: Surgical changes and devices: None. Lungs and pleura: Lungs are clear. No pleural effusions or pneumothorax. Mediastinum: Mediastinal contours appear normal. Heart size is enlarged Bones and chest wall: No suspicious bony lesions. Overlying soft tissues appear unremarkable. IMPRESSION: No acute pulmonary process. Dictated by: Fannie Zacarias M.D. on 09/24/2025 at 10:46 Approved by: Fannie Zacarias M.D. on 09/24/2025 at 10:46
--- NOTE | 2025-09-24 10:29 | EKG_ITS ---
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
--- NOTE | 2025-09-24 10:29 | EKG_ITS ---
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
[2025-09-24 10:38] LABS: Add Manual Diff / Slide Review NO; Hematocrit 52.4 % (41-53); Hemoglobin 17.6 g/dL (13.5-17.5); Lymphocytes Absolute Auto 1400 /uL (1100-4500); Mean Corpuscular HGB Conc 33.5 % (30-36); Mean Corpuscular Hemoglobin 29.1 PG (26-34); Mean Corpuscular Volume 86.7 fL (80-100); Platelet Count 224 X10^3/uL (150-400)
[2025-09-24 10:46] LABS: INR 1.2 (0.9-1.3); Prothrombin Time 14.1 SECONDS (9.4-12.5); RBC Morphology Normal Morphology
--- NOTE | 2025-09-24 10:48 | ED_ITS ---
HPI - Arrhythmia/Palpitations General Chief Complaint: Arrhythmia/Palpitations Stated Complaint: AFIB 2 days Time Seen by Provider: 09/24/25 10:43 Source: patient Mode of arrival: Family Vehicle Related Data Previous Rx's ?Medication ?Instructions ?Recorded tamsulosin 0.4 mg capsule (Flomax) 0.4 mg PO DAILY #30 caps 06/23/20 flecainide 150 mg tablet 150 mg PO Q12H #60 tabs 12/13 05/06 Allergies Allergy/AdvReac Type Severity Reaction Status Date / Time bee venom protein (honey bee) Allergy Verified 09/24/25 10:29 Patient History Medical History Acute urinary retention Atrial fibrillation Surgical History History of ankle surgery Social History Smoking Status: Never smoker Smoking Status: Never smoker alcohol intake frequency: 0-2 drinks per day Alcohol type: wine Exam Initial Vital Signs Initial Vital Signs: Vital Signs Temperature 98.2 F 09/24/25 10:29 Pulse Rate 61 09/24/25 10:29 Respiratory Rate 15 09/24/25 10:29 Blood Pressure 139/87 09/24/25 10:29 Pulse Oximetry 99 09/24/25 10:29 Oxygen Delivery Method Room Air 09/24/25 10:29 Course Orders Ordered: ED Orders 09/24/25 10:11 XR chest 1V Stat EKG-12 Lead Stat 09/24/25 10:24 Complete Blood Count AUTO DIFF Stat Comprehensive Metabolic Panel Stat Lipase Stat Magnesium Stat NT-proBNP (BNP-Adult 18+) Stat PTT Partial Thromboplastin Amilcar Stat Prothrombin Time INR Stat Troponin & CK Cardiac Panel Stat Discontinued Medications Aspirin (Aspirin 81 Mg Chew Tab) 324 mg PO NOW ONE Stop: 09/24/25 10:12 Vital Signs Vital signs: Vital Signs - 8 hr 09/24/25 10:29 Temperature 98.2 F Pulse Rate 61 Respiratory Rate 15 Blood Pressure 139/87 Pulse Oximetry 99 Oxygen Delivery Method Room Air MDM - Arrhythmia/Palpitations Lab Data 09/24/25 10:24 Labs: Lab Results 09/24/25 Range/Units 10:24 WBC 5.8 (4.5-11.0) X10^3/uL RBC 6.05 H (4.5-5.9) X10^6/uL Hgb 17.6 H (13.5-17.5) g/dL Hct 52.4 (41-53) % MCV 86.7 (80-100) fL MCH 29.1 (26-34) PG MCHC 33.5 (30-36) % RDW 14.5 (11.6-14.8) % Plt Count 224 (150-400) X10^3/uL Neut % (Auto) 66.5 (50-75) % Lymph % (Auto) 23.7 L (25-40) % [place] % (Auto) 7.3 (3-14) % Eos % (Auto) 1.6 L (2-4) % Baso % (Auto) 0.9 (0-2) % Neut # (Auto) 3900 (2577-6545) /uL Lymph # (Auto) 1400 (8910-1880) /uL [place] # (Auto) 400 (0-900) /uL Eos # (Auto) 100 (0-450) /uL Baso # (Auto) 100 (0-100) /uL RBC Morphology Normal morphology PT 14.1 H (9.4-12.5) SECONDS INR 1.2 (0.9-1.3) Discharge Plan Departure Prescriptions: No Action flecainide 150 mg tablet 150 mg PO Q12H Qty: 60 0RF tamsulosin [Flomax] 0.4 mg capsule 0.4 mg PO DAILY Qty: 30 0RF Referrals: Bhargav Webster MD [Primary Care Provider, [facility]]
[2025-09-24 10:49] LABS: PTT Partial Thromboplastin Tim 37 SECONDS (25.1-36.5)
[2025-09-24 10:51] LABS: Alanine Aminotransferase 26 IU/L (<50); Albumin 4.5 g/dL (3.5-5.0); Albumin Globulin Ratio 1.6 (1.0-2.8); Alkaline Phosphatase 65 U/L (38-126); Blood Urea Nitrogen 13 mg/dL (9-20); Calcium 8.9 mg/dL (8.4-10.2); Carbon Dioxide 24 mmol/L (22-32); Chloride 103 mmol/L (98-107); Creatine Kinase 54 U/L (55-170); Estimated Glomerular Filt Rate > 60 mL/min (>60); Globulin 2.8 g/dL (1.7-4.1); Glucose 97 mg/dL (70-99); HEMOLYSIS < 15 (0-50); Lipase 38 U/L (23-300); Magnesium 2.0 mg/dL (1.6-2.3); Potassium 4.3 mmol/L (3.4-5.1); Sodium 136 mmol/L (137-145); Total Protein 7.3 g/dL (6.3-8.2)
[2025-09-24 11:02] LABS: NT-proBNP (BNP-Adult 18+) 3070 pg/mL (<450); Troponin I < 0.012 ng/mL (0.01-0.034)
--- NOTE | 2025-09-24 11:13 | ED_ITS ---
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 Patient states he has been compliant with all of his medications including his Eliquis, on Saturday he started feeling that he was in atrial fibrillation which he describes as feeling fatigued, slightly lightheaded, and very slightly short of breath. He knew that he was in AFib. Once before he did spontaneously convert so he help this would occur however they if it has persisted so he presents to the emergency department with hopes for cardioversion. Metal Bench Patternmaker is Cyn Palmer. He denies any fevers, chills, cough, chest pain, headache, abdominal pain, vomiting, diarrhea. His last echo was in April of 2025 with Cyn and it was normal. Related Data Previous Rx's ?Medication ?Instructions ?Recorded tamsulosin 0.4 mg capsule (Flomax) 0.4 mg PO DAILY #30 caps 06/23/20 flecainide 150 mg tablet 150 mg PO Q12H #60 tabs 12/13 05/06 Allergies Allergy/AdvReac Type Severity Reaction Status Date / Time bee venom protein (honey bee) Allergy Verified 09/24/25 10:29 Review of Systems <Merle Alba PA-C - Last Filed: 09/24/25 18:44> Review of Systems ROS Unobtainable: All systems reviewed & are unremarkable except as noted in HPI and below <Sayra Ward DO - Last Filed: 09/27/25 07:18> Review of Systems ROS Unobtainable: All systems reviewed & are unremarkable except as noted in HPI and below Patient History <Merle Alba PA-C - Last Filed: 09/24/25 18:44> Medical History Acute urinary retention Atrial fibrillation Surgical History History of ankle surgery Social History Smoking Status: Never smoker Smoking Status: Never smoker alcohol intake frequency: 0-2 drinks per day Alcohol type: wine Exam <Merle Alba PA-C - Last Filed: 09/24/25 18:44> Narrative Exam Narrative: GENERAL: 79 year old patient appears stated age. Well-developed patient, in no acute distress. HEAD: Atraumatic. Normocephalic. EYES: No scleral icterus. No injection or drainage. NECK: Trachea midline. Cervical ROM intact. CARDIOVASCULAR: Regular rate, irregularly irregular rhythm, systolic murmur. RESPIRATORY: ?Nonlabored respirations. ?Speaking in clear, full sentences. ?Clear to auscultation. Breath sounds equal bilaterally. No wheezes, rales, or rhonchi. ? GASTROINTESTINAL: Abdomen soft, non-tender, nondistended. Bowel sounds present. EXTREMITIES: No LE edema. NEURO: AOx3. ?Clear speech. ?Moves all 4 extremities appropriately. SKIN: No rash or erythema of visible areas Initial Vital Signs Initial Vital Signs: Vital Signs Pulse Rate 58 L 09/24/25 10:11 Blood Pressure 139/87 09/24/25 10:11 Pulse Oximetry 97 09/24/25 10:11 <Sayra Ward DO - Last Filed: 09/27/25 07:18> Initial Vital Signs Initial Vital Signs: Vital Signs Pulse Rate 58 L 09/24/25 10:11 Blood Pressure 139/87 09/24/25 10:11 Pulse Oximetry 97 09/24/25 10:11 Procedures <Sayra Ward DO - Last Filed: 09/27/25 07:18> Cardioversion Consent Signed: Yes Indication: Atrial fibrillation Stability: Stable Number of attempts (shocks): 1 Joules used: 150 Cardiac rhythm post-cardioversion: normal sinus rhythm Procedural Sedation Consent signed: Yes Time out performed: Yes ASA Class: II Mallampati Airway Classification: Class II Time of Last PO Intake: 05:30 Preparation: monitor and storage bin tender applied, pulse oximeter, capnometry used, supplemental O2 applied, suction/airway equipment at bedside and IV secured IV Propofol dose (mg): 70 ED Sedation Level: Moderate (Concious) Patient Tolerated Procedure: Well Complications: hypoventilation Interventions: Airway repositioned Additional Comments: Indications: Past history: Prior complications to general anesthesia [none] Prior complications to procedural sedation [none] Last ingestion: Followed ingestion was 09/23/2025 last night, this liquids was 0530 Allergies: See nurse's note ASA Classification: P to E. Emergent conditions P1:Normal healthy patient P2: Mild systemic disease P3: Severe systemic disease P4: Severe systemic disease that is a constant threat to life P5: Moribund patient who is not expected to survive w/o operation Physical exam: Airway: Normal anatomy. Mallampati classification= 2 1. Soft Palate, anterior/posterior tonsillar pillars and uvula visible 2. Tonsillar pillars and uvula hidden by base of tongue 3. Only soft palate visible 4.Soft palate not visible Resp: normal breath sounds CV: AFib RVR NEURO: alert, no acute distress, responsive Preparation: Plan was explaned to patient. Consent signed. oximetry during procedure capnometry during procedure IV access obtained suction immediately available monitor and storage bin tender in use Sedation used: Propofol 70 mg Complications: Brief apnea, area was repositioned. Reversal: None Discharge criteria: procedure completed, patient has tolerated procedure well, VS to baseline, LOC return to baseline, ambulates unassisted or with minimal assistance. Discharge instructions: given to responsible adult, these are understood, and adult to escort patient home. Course <Merle Alba PA-C - Last Filed: 09/24/25 18:44> Orders Ordered: Discontinued Medications Aspirin (Aspirin 81 Mg Chew Tab) 324 mg PO NOW ONE Stop: 09/24/25 10:12 Last Admin: 09/24/25 11:26 Dose: Not Given Documented By: SB Propofol (Propofol 200 Mg/20 Ml Vial) 70 mg IV NOW ONE Stop: 09/24/25 11:44 Last Admin: 09/24/25 12:40 Dose: 70 mg Documented By: SB Vital Signs Vital signs: Vital Signs - 8 hr 09/24/25 11:00 09/24/25 11:00 09/24/25 11:30 Temperature Pulse Rate 84 Respiratory Rate Blood Pressure 122/80 117/82 Pulse Oximetry 98 Oxygen Delivery Method Oxygen Flow Rate 09/24/25 11:30 09/24/25 12:00 09/24/25 12:00 Temperature Pulse Rate 91 H 91 H Respiratory Rate 22 18 Blood Pressure 130/86 Pulse Oximetry 98 98 Oxygen Delivery Method Room Air Oxygen Flow Rate 09/24/25 12:10 09/24/25 12:13 09/24/25 12:13 Temperature Pulse Rate 84 Respiratory Rate 16 25 H Blood Pressure 171/85 H Pulse Oximetry 99 Oxygen Delivery Method Oxygen Flow Rate 09/24/25 12:15 09/24/25 12:15 09/24/25 12:20 Temperature Pulse Rate 79 Respiratory Rate 20 Blood Pressure 139/79 158/70 H Pulse Oximetry 98 Oxygen Delivery Method Oxygen Flow Rate 09/24/25 12:20 09/24/25 12:26 09/24/25 12:26 Temperature Pulse Rate 81 80 Respiratory Rate 26 H 16 Blood Pressure 142/82 H Pulse Oximetry 98 99 Oxygen Delivery Method Oxygen Flow Rate 09/24/25 12:30 09/24/25 12:30 09/24/25 12:30 Temperature 97.7 F Pulse Rate 85 75 Respiratory Rate 21 16 Blood Pressure 151/88 H 137/82 Pulse Oximetry 99 99 Oxygen Delivery Method Oxygen Flow Rate 09/24/25 12:35 09/24/25 12:35 09/24/25 12:40 Temperature Pulse Rate 86 Respiratory Rate 23 Blood Pressure 151/88 H 155/94 H Pulse Oximetry 99 Oxygen Delivery Method Oxygen Flow Rate 09/24/25 12:40 09/24/25 12:45 09/24/25 12:45 Temperature Pulse Rate 87 67 Respiratory Rate 18 19 Blood Pressure 132/77 Pulse Oximetry 99 96 Oxygen Delivery Method Oxygen Flow Rate 09/24/25 12:50 09/24/25 12:50 09/24/25 12:55 Temperature Pulse Rate 69 Respiratory Rate 18 Blood Pressure 129/77 135/78 Pulse Oximetry 97 Oxygen Delivery Method Oxygen Flow Rate 09/24/25 12:55 09/24/25 13:00 09/24/25 13:00 Temperature Pulse Rate 67 66 Respiratory Rate 20 19 Blood Pressure 136/79 Pulse Oximetry 98 97 Oxygen Delivery Method Oxygen Flow Rate 09/24/25 13:05 09/24/25 13:05 09/24/25 13:10 Temperature 97.8 F Pulse Rate 69 71 Respiratory Rate 19 18 Blood Pressure 131/78 144/84 H Pulse Oximetry 97 97 Oxygen Delivery Method Oxygen Flow Rate 0 09/24/25 13:10 09/24/25 13:10 09/24/25 13:16 Temperature Pulse Rate 68 Respiratory Rate 15 Blood Pressure 144/84 H 147/87 H Pulse Oximetry 97 Oxygen Delivery Method Oxygen Flow Rate 09/24/25 13:16 09/24/25 13:20 09/24/25 13:20 Temperature Pulse Rate 71 69 Respiratory Rate 22 21 Blood Pressure 135/77 Pulse Oximetry 97 98 Oxygen Delivery Method Room Air Oxygen Flow Rate <Sayra Ward, - Last Filed: 09/27/25 07:18> Orders Ordered: Discontinued Medications Aspirin (Aspirin 81 Mg Chew Tab) 324 mg PO NOW ONE Stop: 09/24/25 10:12 Last Admin: 09/24/25 11:26 Dose: Not Given Documented By: JASMINE Propofol (Propofol 200 Mg/20 Ml Vial) 70 mg IV NOW ONE Stop: 09/24/25 11:44 Last Admin: 09/24/25 12:40 Dose: 70 mg Documented By: JASMINE Vital Signs Vital signs: Vital Signs - 8 hr 09/24/25 11:00 09/24/25 11:00 09/24/25 11:30 Temperature Pulse Rate 84 Respiratory Rate Blood Pressure 122/80 117/82 Pulse Oximetry 98 Oxygen Delivery Method Oxygen Flow Rate 09/24/25 11:30 09/24/25 12:00 09/24/25 12:00 Temperature Pulse Rate 91 H 91 H Respiratory Rate 22 18 Blood Pressure 130/86 Pulse Oximetry 98 98 Oxygen Delivery Method Room Air Oxygen Flow Rate 09/24/25 12:10 09/24/25 12:13 09/24/25 12:13 Temperature Pulse Rate 84 Respiratory Rate 16 25 H Blood Pressure 171/85 H Pulse Oximetry 99 Oxygen Delivery Method Oxygen Flow Rate 09/24/25 12:15 09/24/25 12:15 09/24/25 12:20 Temperature Pulse Rate 79 Respiratory Rate 20 Blood Pressure 139/79 158/70 H Pulse Oximetry 98 Oxygen Delivery Method Oxygen Flow Rate 09/24/25 12:20 09/24/25 12:26 09/24/25 12:26 Temperature Pulse Rate 81 80 Respiratory Rate 26 H 16 Blood Pressure 142/82 H Pulse Oximetry 98 99 Oxygen Delivery Method Oxygen Flow Rate 09/24/25 12:30 09/24/25 12:30 09/24/25 12:30 Temperature 97.7 F Pulse Rate 85 75 Respiratory Rate 21 16 Blood Pressure 151/88 H 137/82 Pulse Oximetry 99 99 Oxygen Delivery Method Oxygen Flow Rate 09/24/25 12:35 09/24/25 12:35 09/24/25 12:40 Temperature Pulse Rate 86 Respiratory Rate 23 Blood Pressure 151/88 H 155/94 H Pulse Oximetry 99 Oxygen Delivery Method Oxygen Flow Rate 09/24/25 12:40 09/24/25 12:45 09/24/25 12:45 Temperature Pulse Rate 87 67 Respiratory Rate 18 19 Blood Pressure 132/77 Pulse Oximetry 99 96 Oxygen Delivery Method Oxygen Flow Rate 09/24/25 12:50 09/24/25 12:50 09/24/25 12:55 Temperature Pulse Rate 69 Respiratory Rate 18 Blood Pressure 129/77 135/78 Pulse Oximetry 97 Oxygen Delivery Method Oxygen Flow Rate 09/24/25 12:55 09/24/25 13:00 09/24/25 13:00 Temperature Pulse Rate 67 66 Respiratory Rate 20 19 Blood Pressure 136/79 Pulse Oximetry 98 97 Oxygen Delivery Method Oxygen Flow Rate 09/24/25 13:05 09/24/25 13:05 09/24/25 13:10 Temperature 97.8 F Pulse Rate 69 71 Respiratory Rate 19 18 Blood Pressure 131/78 144/84 H Pulse Oximetry 97 97 Oxygen Delivery Method Oxygen Flow Rate 0 09/24/25 13:10 09/24/25 13:10 09/24/25 13:16 Temperature Pulse Rate 68 Respiratory Rate 15 Blood Pressure 144/84 H 147/87 H Pulse Oximetry 97 Oxygen Delivery Method Oxygen Flow Rate 09/24/25 13:16 09/24/25 13:20 09/24/25 13:20 Temperature Pulse Rate 71 69 Respiratory Rate 22 21 Blood Pressure 135/77 Pulse Oximetry 97 98 Oxygen Delivery Method Room Air Oxygen Flow Rate MDM - Arrhythmia/Palpitations <Merle Alba PA-C - Last Filed: 09/24/25 18:44> Medical Records Attestation: I reviewed the patient's medical records. Lab Data 09/24/25 10:24 09/24/25 10:24 Labs: Lab Results 09/24/25 Range/Units 10:24 WBC 5.8 (4.5-11.0) X10^3/uL RBC 6.05 H (4.5-5.9) X10^6/uL Hgb 17.6 H (13.5-17.5) g/dL Hct 52.4 (41-53) % MCV 86.7 (80-100) fL MCH 29.1 (26-34) PG MCHC 33.5 (30-36) % RDW 14.5 (11.6-14.8) % Plt Count 224 (150-400) X10^3/uL Neut % (Auto) 66.5 (50-75) % Lymph % (Auto) 23.7 L (25-40) % [place] % (Auto) 7.3 (3-14) % Eos % (Auto) 1.6 L (2-4) % Baso % (Auto) 0.9 (0-2) % Neut # (Auto) 3900 (2010-8744) /uL Lymph # (Auto) 1400 (4754-7741) /uL [place] # (Auto) 400 (0-900) /uL Eos # (Auto) 100 (0-450) /uL Baso # (Auto) 100 (0-100) /uL RBC Morphology Normal morphology PT 14.1 H (9.4-12.5) SECONDS INR 1.2 (0.9-1.3) APTT 37 H (25.1-36.5) SECONDS Sodium 136 L (137-145) mmol/L Potassium 4.3 (3.4-5.1) mmol/L Chloride 103 (98-107) mmol/L Carbon Dioxide 24 (22-32) mmol/L BUN 13 (9-20) mg/dL Creatinine 0.96 (0.66-1.25) mg/dL Estimated GFR > 60 (>60) mL/min BUN/Creatinine Ratio 13.5 (6-22) Glucose 97 (70-99) mg/dL Calcium 8.9 (8.4-10.2) mg/dL Magnesium 2.0 (1.6-2.3) mg/dL Total Bilirubin 1.2 (0.2-1.3) mg/dL AST 27 (17-59) IU/L ALT 26 (<50) IU/L Alkaline Phosphatase 65 (38-126) U/L Total Creatine Kinase 54 L (55-170) U/L Troponin I < 0.012 (0.01-0.034) ng/mL NT-Pro-B Natriuret Pep 3070 H (<450) pg/mL Total Protein 7.3 (6.3-8.2) g/dL Albumin 4.5 (3.5-5.0) g/dL Globulin 2.8 (1.7-4.1) g/dL Albumin/Globulin Ratio 1.6 (1.0-2.8) Lipase 38 (23-300) U/L Imaging Data Chest x-ray: Radiologist's Impresson: PROCEDURE: XR CHEST 1V INDICATIONS: Chest Pain TECHNIQUE: One view of the chest was acquired. COMPARISON: [facility], , XR CHEST 1V, 04/10/2024, 15:14. FINDINGS: Surgical changes and devices: None. Lungs and pleura: Lungs are clear. No pleural effusions or pneumothorax. Mediastinum: Mediastinal contours appear normal. Heart size is enlarged Bones and chest wall: No suspicious bony lesions. Overlying soft tissues appear unremarkable. IMPRESSION: No acute pulmonary process. Dictated by: Fannie Zacarias M.D. on 09/24/2025 at 10:46 Approved by: Fannie Zacarias M.D. 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 Differential diagnosis includes but is not limited to symptomatic atrial fibrillation, rate controlled atrial fibrillation, pneumonia, pleural effusion, etc. On exam patient is in no acute distress, nontoxic-appearing, all vital signs within normal limits. He is currently in rate controlled atrial fibrillation, he has taken his Eliquis as directed and has been on it for multiple years, 5 mg b.i.d.. He is also on flecainide 75 mg b.i.d.. He has been in atrial fibrillation since Saturday. He is not experiencing any chest pain but he does feel fatigued slightly lightheaded and slightly short of breath. He has no lower extremity edema in his lungs are clear to auscultation he does however have a prominent systolic murmur that he is aware of. Last echo was April of 2025 and reports that he had a normal EF. I am able to see his April 2024 echo and he had an EF of 50-55% at that time. Chest pain order set initiated in triage, case discussed with attending physician Dr. Ward, patient may be a candidate for cardioversion and is interested in this. Labs reveal normal WBC count 5.8. Slightly elevated RBC 6.05 hemoglobin 17.6. Platelets 224. Slightly prolonged PT 14.1, a PDT 37. INR 1.2. Sodium 136, potassium 4.3, magnesium 2.0. Normal renal function with a BUN of 13 and a creatinine of 0.96. Normal LFTs. Undetectable troponin. BNP is elevated at 3070. Dr. Ward: EKG shows atrial fibrillation rate 82 nonspecific change. Labs show white count of 5.8 hemoglobin of 17.6 platelets of 224, INR is 1.2 with a PTT of 36. Sodium is 136 potassium 4.3 Mag is 2 electrolytes are otherwise appropriate with normal BUN and creatinine, troponins less than 0.012 with a BNP of 3070, patient has prior from 04/10/2024 was 1700. Chest x-ray shows no acute pulmonary process. Patient has prior echo available 05/12/2024 which showed EF of 50-55% no focal wall motion abnormalities or diastolic function likely normal with probable normal filling pressures have been change systolic function was lower limits of normal in appearance slightly this dynamic compared to prior study. Right ventricle is mildly enlarged with a borderline hypokinesis appears slightly larger and slightly less dynamic compared to previous study severe biatrial enlargement grossly unchanged from prior study. Moderate to severe mitral regurgitation tricuspid regurgitation that has changed. Patient is requesting cardioversion he is rate controlled but isn't atrial fibrillation he is anticoagulated appropriately has not had any missed doses. Does follow up regularly with the cardiology with Dr. Mckay. States he had a echo in April of 2025 at [facility]. Patient had cardioversion here in the department which he tolerated well. Appears to be in sinus rhythm afterwards. All of the patient's questions were answered and he was discharged from the emergency department in stable condition, normal sinus rhythm, rate controlled. ER return precautions discussed. <Sayra Ward, DO - Last Filed: 09/27/25 07:18> Lab Data Labs: Lab Results 09/24/25 Range/Units 10:24 WBC 5.8 (4.5-11.0) X10^3/uL RBC 6.05 H (4.5-5.9) X10^6/uL Hgb 17.6 H (13.5-17.5) g/dL Hct 52.4 (41-53) % MCV 86.7 (80-100) fL MCH 29.1 (26-34) PG MCHC 33.5 (30-36) % RDW 14.5 (11.6-14.8) % Plt Count 224 (150-400) X10^3/uL Neut % (Auto) 66.5 (50-75) % Lymph % (Auto) 23.7 L (25-40) % [place] % (Auto) 7.3 (3-14) % Eos % (Auto) 1.6 L (2-4) % Baso % (Auto) 0.9 (0-2) % Neut # (Auto) 3900 (0088-9408) /uL Lymph # (Auto) 1400 (2978-3701) /uL [place] # (Auto) 400 (0-900) /uL Eos # (Auto) 100 (0-450) /uL Baso # (Auto) 100 (0-100) /uL RBC Morphology Normal morphology PT 14.1 H (9.4-12.5) SECONDS INR 1.2 (0.9-1.3) APTT 37 H (25.1-36.5) SECONDS Sodium 136 L (137-145) mmol/L Potassium 4.3 (3.4-5.1) mmol/L Chloride 103 (98-107) mmol/L Carbon Dioxide 24 (22-32) mmol/L BUN 13 (9-20) mg/dL Creatinine 0.96 (0.66-1.25) mg/dL Estimated GFR > 60 (>60) mL/min BUN/Creatinine Ratio 13.5 (6-22) Glucose 97 (70-99) mg/dL Calcium 8.9 (8.4-10.2) mg/dL Magnesium 2.0 (1.6-2.3) mg/dL Total Bilirubin 1.2 (0.2-1.3) mg/dL AST 27 (17-59) IU/L ALT 26 (<50) IU/L Alkaline Phosphatase 65 (38-126) U/L Total Creatine Kinase 54 L (55-170) U/L Troponin I < 0.012 (0.01-0.034) ng/mL NT-Pro-B Natriuret Pep 3070 H (<450) pg/mL Total Protein 7.3 (6.3-8.2) g/dL Albumin 4.5 (3.5-5.0) g/dL Globulin 2.8 (1.7-4.1) g/dL Albumin/Globulin Ratio 1.6 (1.0-2.8) Lipase 38 (23-300) U/L ECG Data Attestation: I personally reviewed and interpreted this ECG as follows: Interpretation: AFib rate 82 QRS of 98 QTC 443, no acute ST-elevation nonspecific change. 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 Differential diagnosis includes but is not limited to symptomatic atrial fibrillation, rate controlled atrial fibrillation, pneumonia, pleural effusion, etc. On exam patient is in no acute distress, nontoxic-appearing, all vital signs within normal limits. He is currently in rate controlled atrial fibrillation, he has taken his Eliquis as directed and has been on it for multiple years, 5 mg b.i.d.. He is also on flecainide 75 mg b.i.d.. He has been in atrial fibrillation since Saturday. He is not experiencing any chest pain but he does feel fatigued slightly lightheaded and slightly short of breath. He has no lower extremity edema in his lungs are clear to auscultation he does however have a prominent systolic murmur that he is aware of. Last echo was April of 2025 and reports that he had a normal EF. I am able to see his April 2024 echo and he had an EF of 50-55% at that time. Chest pain order set initiated in triage, case discussed with attending physician Dr. Mank, patient may be a candidate for cardioversion and is interested in this. Labs reveal normal WBC count 5.8. Slightly elevated RBC 6.05 hemoglobin 17.6. Platelets 224. Slightly prolonged PT 14.1, a PDT 37. INR 1.2. Sodium 136, potassium 4.3, magnesium 2.0. Normal renal function with a BUN of 13 and a creatinine of 0.96. Normal LFTs. Undetectable troponin. BNP is elevated at 3070. Dr. Ward: EKG shows atrial fibrillation rate 82 nonspecific change. Labs show white count of 5.8 hemoglobin of 17.6 platelets of 224, INR is 1.2 with a PTT of 36. Sodium is 136 potassium 4.3 Mag is 2 electrolytes are otherwise appropriate with normal BUN and creatinine, troponins less than 0.012 with a BNP of 3070, patient has prior from 04/10/2024 was 1700. Chest x-ray shows no acute pulmonary process. Patient has prior echo available 05/12/2024 which showed EF of 50-55% no focal wall motion abnormalities or diastolic function likely normal with probable normal filling pressures have been change systolic function was lower limits of normal in appearance slightly this dynamic compared to prior study. Right ventricle is mildly enlarged with a borderline hypokinesis appears slightly larger and slightly less dynamic compared to previous study severe biatrial enlargement grossly unchanged from prior study. Moderate to severe mitral regurgitation tricuspid regurgitation that has changed. Patient is requesting cardioversion he is rate controlled but isn't atrial fibrillation he is anticoagulated appropriately has not had any missed doses. Does follow up regularly with the cardiology with Dr. Mckay. States he had a echo in April of 2025 at [facility]. Patient had cardioversion here in the department which he tolerated well. Appears to be in sinus rhythm afterwards. Discharge Plan Departure Patient Disposition: Home Clinical Impression: Atrial fibrillation Instructions: DI for Atrial Fibrillation Activity Restrictions/Additional Instructions: Talk with Dr. Mckay to see if you need to adjust your medications. Please give the office a call. Please return if you develop new or worsening chest pain, shortness of breath, any lightheadedness or passing out, new swelling of your extremities, persistent vomiting or any other new or concerning changes. Prescriptions: No Action flecainide 150 mg tablet 150 mg PO Q12H Qty: 60 0RF tamsulosin [Flomax] 0.4 mg capsule 0.4 mg PO DAILY Qty: 30 0RF Referrals: Bhargav Webtser MD [Primary Care Provider, Family Practice] Stand Alone Forms: Patient Portal/API
--- NOTE | 2025-09-24 12:45 | EKG_ITS ---
[address] [address] [address] [address] Test Date: 2025-09-24 Pat Name: Marco Crews Department: Room: Gender: Male Training Program Assistant: farrukh : [id number] Requested By: Order Number: [id number] Reading MD: Derek Ochoa MD Measurements Intervals [place] Rate: 68 P: 69 IA: 272 QRS: 34 QRSD: 100 T: 70 QT: 410 QTc: 435 Interpretive Statements Sinus rhythm with 1st degree AV block Electronically Signed On 09-25-2025 10:17:17 PST by Derek Ochoa MD
--- NOTE | 2025-09-24 13:24 | PC.NURSE ---
Wasted 130mg of propofol with RN Leanne Sherman at [facility].
== END 2025-09-24 13:38 | disposition home or self-care (01) ==
PROVIDERS: Emergency Medicine; Emergency Provider Physician Assistant; Family Provider Family Medicine; PCP Family Medicine
DX: I48.91 Unspecified atrial fibrillation (principal)
CPT/HCPCS: 36415; 71045; 80053; 82550; 83690; 83735; 83880; 84484; 85025; 85610; 85730; 92960; 93005; 99285; J2704

== ENCOUNTER → 2025-10-13 09:09 | Outpatient (CLI) | payer MEDICARE, OTHER, SELFPAY | PROVIDERS: Family Provider Family Medicine; PCP Family Medicine; Referring Provider Internal Medicine Cardiovascular Disease; Visit Provider Internal Medicine Cardiovascular Disease | DX: I48.0 Paroxysmal atrial fibrillation (principal) | CPT/HCPCS: 36415; 80299 ==